=== PATIENT | female | born 1940 | race Caucasian/White ===

== ENCOUNTER 2017-04-12 22:36 | Inpatient (IN) | payer MEDICARE, MEDICAID ==
[2017-04-13 05:03] LABS: URINE MICROSCOPIC INDICATED? YES; URINE SOURCE MIDSTREAM
[2017-04-13 05:04] LABS: % BASOPHILS 1.2 % (0.0-2.0); % LYMPHOCYTES 33.4 % (20.0-50.0); % MONOCYTES 8.2 % (2.0-10.0); % NEUTROPHILS 56.2 % (40.0-80.0); BASOPHILE ABSOLUTE 0.1 Th/cumm (0-0.2); HEMATOCRIT 38.4 % (41.0-60); HEMOGLOBIN 12.6 gm/dL (12-16); LYMPHOCYTE ABSOLUTE 1.5 Th/cmm (1.5-3.0); MEAN CELL VOLUME 81.5 fl (81-100); MEAN CORPUSCULAR HEMOGLOBIN 26.7 pg (27.0-31.0); MEAN CORPUSCULAR HGB CONC 32.8 pg (28.0-36.0); MEAN PLATELET VOLUME 8.4 fl; MONOCYTE ABSOLUTE 0.4 Th/cmm (0.3-1.0); NEUTROPHILE ABSOLUTE 2.6 Th/cmm (1.8-8.0); RED BLOOD COUNT 4.72 Mil/cmm (3.80-5.20); RED CELL DISTRIBUTION WIDTH 14.2 % (11.5-20.0)
[2017-04-13 05:06] LABS: PLATELET COUNT 179 Th/cmm (150-400); WHITE BLOOD COUNT 4.6 Th/cmm (4.8-10.8)
[2017-04-13 05:16] LABS: URINE BILIRUBIN NEGATIVE (NEGATIVE); URINE BLOOD NEGATIVE (NEGATIVE); URINE GLUCOSE (UA) NEGATIVE (NEGATIVE); URINE KETONE NEGATIVE (NEGATIVE); URINE LEUKOCYTE ESTERASE NEGATIVE (NEGATIVE); URINE NITRATE NEGATIVE (NEGATIVE); URINE PH 7.5 (4.6 - 8.0); URINE PROTEIN NEGATIVE (NEGATIVE); URINE UROBILINOGEN 0.2 E.U./dL (0.2 - 1.0)
[2017-04-13 05:21] LABS: ALB/GLOB RATIO 1.3 (1.0-1.8); ALBUMIN 3.6 gm/dL (3.7-5.3); ALKALINE PHOSPHATASE 80 U/L (34-104); ANION GAP 6.4 (7.0-16.0); BILIRUBIN,TOTAL 0.5 mg/dL (0.3-1.0); BUN - UREA NITROGEN 15 mg/dL (7-25); CALCIUM SERUM 9.3 mg/dL (8.6-10.3); CARBON DIOXIDE 27.3 mEq/L (21.0-31.0); CHLORIDE 107 mEq/L (98-107); CREATININE - SERUM 0.7 mg/dL (0.6-1.2); GLUCOSE 95 mg/dL (70-105); POTASSIUM SERUM 3.7 mEq/L (3.5-5.1); SGOT 16 U/L (13-39); SGPT/ALT 20 U/L (7-52); SODIUM SERUM 137 mEq/L (136-145); TOTAL PROTEIN,SERUM 6.3 gm/dL (6.0-8.3)
[2017-04-13 05:26] LABS: URINE CLARITY CLEAR (CLEAR); URINE COLOR YELLOW
[2017-04-13 05:29] LABS: URINE EPITHELIAL CELLS FEW /lpf (FEW); URINE WBC 0-2 /hpf (0-5)
[2017-04-13 05:30] LABS: URINE BACTERIA FEW /hpf (NONE SEEN)
[2017-04-13 08:29] VITALS: BP 160/88
[2017-04-13] MEDS ORDERED: Magnesium Hydroxide (MOM) 30 mL UDC PO PRN (08:30)
[2017-04-13] MEDS ORDERED: Maalox 30 mL Cup PO PRN (08:30)
[2017-04-13] MEDS: Multivitamin Tab PO SCH (10:50)
--- NOTE | 2017-04-13 11:02 | Internal Medicine Prog Note ---
Internal Medicine Subjective - Subjective Service Date: 04/13/17 ([facility] dictated [id number]) Internal Medicine Objective - Results Result Diagrams: 04/13/17 04:55 04/13/17 04:55 Recent Labs: Laboratory Last Values WBC 4.6 Th/cmm (4.8-10.8) L D 04/13/17 04:55 RBC 4.72 Mil/cmm (3.80-5.20) 04/13/17 04:55 Hgb 12.6 gm/dL (12-16) 04/13/17 04:55 Hct 38.4 % (41.0-60) L 04/13/17 04:55 MCV 81.5 fl (81-100) 04/13/17 04:55 MCH 26.7 pg (27.0-31.0) L 04/13/17 04:55 MCHC Differential 32.8 pg (28.0-36.0) 04/13/17 04:55 RDW 14.2 % (11.5-20.0) 04/13/17 04:55 Plt Count 179 Th/cmm (150-400) D 04/13/17 04:55 MPV 8.4 fl 04/13/17 04:55 Neutrophils % 56.2 % (40.0-80.0) 04/13/17 04:55 Lymphocytes % 33.4 % (20.0-50.0) 04/13/17 04:55 Monocytes % 8.2 % (2.0-10.0) 04/13/17 04:55 Eosinophils % 1.0 % (0.0-5.0) 04/13/17 04:55 Basophils % 1.2 % (0.0-2.0) 04/13/17 04:55 Sodium 137 mEq/L (136-145) 04/13/17 04:55 Potassium 3.7 mEq/L (3.5-5.1) 04/13/17 04:55 Chloride 107 mEq/L (98-107) 04/13/17 04:55 Carbon Dioxide 27.3 mEq/L (21.0-31.0) 04/13/17 04:55 Anion Gap 6.4 (7.0-16.0) L 04/13/17 04:55 BUN 15 mg/dL (7-25) 04/13/17 04:55 Creatinine 0.7 mg/dL (0.6-1.2) 04/13/17 04:55 Est GFR ( Amer) TNP 04/13/17 04:55 Est GFR (Non-Af Amer) TNP 04/13/17 04:55 BUN/Creatinine Ratio 21.4 04/13/17 04:55 Glucose 95 mg/dL (70-105) 04/13/17 04:55 Calcium 9.3 mg/dL (8.6-10.3) 04/13/17 04:55 Total Bilirubin 0.5 mg/dL (0.3-1.0) 04/13/17 04:55 AST 16 U/L (13-39) 04/13/17 04:55 ALT 20 U/L (7-52) 04/13/17 04:55 Alkaline Phosphatase 80 U/L (34-104) 04/13/17 04:55 Total Protein 6.3 gm/dL (6.0-8.3) 04/13/17 04:55 Albumin 3.6 gm/dL (3.7-5.3) L 04/13/17 04:55 Globulin 2.7 gm/dL 04/13/17 04:55 Albumin/Globulin Ratio 1.3 (1.0-1.8) 04/13/17 04:55 TSH 3.90 uIU/ml (0.34-5.60) 04/13/17 04:55 Urine Source MIDSTREAM 04/13/17 05:00 Urine Color YELLOW 04/13/17 05:00 Urine Clarity CLEAR (CLEAR) 04/13/17 05:00 Urine pH 7.5 (4.6 - 8.0) 04/13/17 05:00 Ur Specific [place] 1.015 (1.005-1.030) 04/13/17 05:00 Urine Protein NEGATIVE mg/dL (NEGATIVE) 04/13/17 05:00 Urine Glucose (UA) NEGATIVE mg/dL (NEGATIVE) 04/13/17 05:00 Urine Ketones NEGATIVE mg/dL (NEGATIVE) 04/13/17 05:00 Urine Blood NEGATIVE (NEGATIVE) 04/13/17 05:00 Urine Nitrate NEGATIVE (NEGATIVE) 04/13/17 05:00 Urine Bilirubin NEGATIVE (NEGATIVE) 04/13/17 05:00 Urine Urobilinogen 0.2 E.U./dL (0.2 - 1.0) 04/13/17 05:00 Ur Leukocyte Esterase NEGATIVE (NEGATIVE) 04/13/17 05:00 Urine RBC 2-5 /hpf (0-5) 04/13/17 05:00 Urine WBC 0-2 /hpf (0-5) 04/13/17 05:00 Ur Epithelial Cells FEW /lpf (FEW) 04/13/17 05:00 Urine Bacteria FEW /hpf (NONE SEEN) 04/13/17 05:00 Urine Mucus FEW /lpf (FEW) 04/13/17 05:00 - Physical Exam Vitals and I&O: Vital Signs Temp 98.0 F 04/13/17 07:19 Pulse 78 04/13/17 07:19 Resp 16 04/13/17 07:19 BP 160/88 04/13/17 08:29 Pulse Ox 96 04/13/17 07:19 Active Medications: Current Medications Acetaminophen (Tylenol) 650 mg PO Q4HR PRN PRN Reason: Mild Pain / Temp above 100 Stop: 06/12/17 08:29 Al Hydrox/Mg Hydrox/Simethicone (Maalox) 30 ml PO Q4HR PRN PRN Reason: GI DISTRESS Stop: 06/12/17 08:29 Lorazepam (Ativan) 0.5 mg PO Q4HR PRN; Protocol PRN Reason: Agitation Stop: 05/13/17 08:29 Magnesium Hydroxide (Milk Of Magnesia) 30 ml PO HS PRN PRN Reason: Constipation Multivitamins/Vitamin C (Theragran) 1 tab PO DAILY [facility] Stop: 06/12/17 08:59 Last Admin: 04/13/17 10:50 Dose: Not Given Zolpidem Tartrate (Ambien) 5 mg PO HS PRN PRN Reason: Insomnia Stop: 06/12/17 08:29 Internal Medicine Assmt/Plan - Assessment Assessment: depression si htn dementia
--- NOTE | 2017-04-13 11:13 | History & Physical ---
ADMIT DATE: 04/13/2017 CHIEF COMPLAINT: Suicidal ideation and refusing medication. HISTORY OF PRESENT ILLNESS: This is a 76-year-old female, who is a resident of [facility], was brought here to [facility] due to depression and wanting to . The patient is now admitted to the Geropsych Unit. Upon examination, the patient is awake, alert, not really want to speak. PAST MEDICAL HISTORY: Depression, dementia, hypertension. PLAN: We will monitor the patient's blood pressure. We will adjust patient's blood pressure medications accordingly. We will continue to follow this patient. [facility]# [id number]
--- NOTE | 2017-04-14 02:01 | Psychosocial Evaluation ---
DATE OF SERVICE: 04/13/2017 IDENTIFYING DATA: The patient is a 76-year-old woman, resident of [facility]. Information obtained by directly interviewing the patient as well as reviewing the admission papers REASON FOR HOSPITALIZATION: The patient is admitted here on a 5150 as a danger to self. CHIEF COMPLAINT: "I want to end my life because no one cares about me." HISTORY OF PRESENT ILLNESS: This is one of multiple psychiatric hospitalizations for this patient, who is on a conservatorship. The patient has been diagnosed to have schizoaffective disorder and has been threatening to take her life. The patient is reporting that she does not care whether she is alive or . The patient has been reported to have been having these kind of problems and has been feeling helpless and hopeless and hence the patient has been admitted over here for stabilization. PAST PSYCHIATRIC HISTORY: Please refer to the above. MEDICAL HISTORY: Physical examination is requested to be done by Dr. Holt. SUBSTANCE ABUSE HISTORY: None. PHYSICAL OR SEXUAL ABUSE HISTORY: None. LEGAL PROBLEMS: None at this time. STRENGTH AND ASSETS: The patient is motivated. MENTAL STATUS EXAMINATION: The patient is a 76-year-old woman looking her stated age, superficially cooperative. Eye contact is poor. Mood is noted to be irritable. Affect is constricted. Coping skills are noted to be extremely poor. Sleep and appetite also noted to be very poor. The patient is very paranoid, isolative and withdrawn. The patient's short-term memory is noted to be poor. Long-term memory seems to be fair. The patient is not willing to comply with the treatment. The patient is stating that she does not need to be on any medications. DIAGNOSTIC IMPRESSION: 1. Schizoaffective disorder, depressed at this time. AXIS II: None. AXIS III: As per Dr. Stanley Holt. IMMEDIATE TREATMENT PLAN: The patient is going to be observed on inpatient unit, provided with supportive psychotherapy. The patient is going to be closely monitored. Once stabilized, the patient is going to be discharged to [facility] to be followed up on an outpatient basis. JOB# [id number]
[2017-04-14] MEDS: risperiDONE 1 mg/mL 30 mL Bottle PO SCH ×2 (08:12→16:27)
[2017-04-14] MEDS: Multivitamin Tab PO SCH ×2 (08:13)
--- NOTE | 2017-04-14 13:32 | Internal Medicine Prog Note ---
Internal Medicine Subjective - Subjective Service Date: 04/14/17 Patient seen and examined:: with staff Patient is:: awake, verbal, talking Per staff patient has:: tolerating meds Internal Medicine Objective - Results Result Diagrams: 04/13/17 04:55 04/13/17 04:55 Recent Labs: Laboratory Last Values WBC 4.6 Th/cmm (4.8-10.8) L D 04/13/17 04:55 RBC 4.72 Mil/cmm (3.80-5.20) 04/13/17 04:55 Hgb 12.6 gm/dL (12-16) 04/13/17 04:55 Hct 38.4 % (41.0-60) L 04/13/17 04:55 MCV 81.5 fl (81-100) 04/13/17 04:55 MCH 26.7 pg (27.0-31.0) L 04/13/17 04:55 MCHC Differential 32.8 pg (28.0-36.0) 04/13/17 04:55 RDW 14.2 % (11.5-20.0) 04/13/17 04:55 Plt Count 179 Th/cmm (150-400) D 04/13/17 04:55 MPV 8.4 fl 04/13/17 04:55 Neutrophils % 56.2 % (40.0-80.0) 04/13/17 04:55 Lymphocytes % 33.4 % (20.0-50.0) 04/13/17 04:55 Monocytes % 8.2 % (2.0-10.0) 04/13/17 04:55 Eosinophils % 1.0 % (0.0-5.0) 04/13/17 04:55 Basophils % 1.2 % (0.0-2.0) 04/13/17 04:55 Sodium 137 mEq/L (136-145) 04/13/17 04:55 Potassium 3.7 mEq/L (3.5-5.1) 04/13/17 04:55 Chloride 107 mEq/L (98-107) 04/13/17 04:55 Carbon Dioxide 27.3 mEq/L (21.0-31.0) 04/13/17 04:55 Anion Gap 6.4 (7.0-16.0) L 04/13/17 04:55 BUN 15 mg/dL (7-25) 04/13/17 04:55 Creatinine 0.7 mg/dL (0.6-1.2) 04/13/17 04:55 Est GFR ( Amer) TNP 04/13/17 04:55 Est GFR (Non-Af Amer) TNP 04/13/17 04:55 BUN/Creatinine Ratio 21.4 04/13/17 04:55 Glucose 95 mg/dL (70-105) 04/13/17 04:55 Calcium 9.3 mg/dL (8.6-10.3) 04/13/17 04:55 Total Bilirubin 0.5 mg/dL (0.3-1.0) 04/13/17 04:55 AST 16 U/L (13-39) 04/13/17 04:55 ALT 20 U/L (7-52) 04/13/17 04:55 Alkaline Phosphatase 80 U/L (34-104) 04/13/17 04:55 Total Protein 6.3 gm/dL (6.0-8.3) 04/13/17 04:55 Albumin 3.6 gm/dL (3.7-5.3) L 04/13/17 04:55 Globulin 2.7 gm/dL 04/13/17 04:55 Albumin/Globulin Ratio 1.3 (1.0-1.8) 04/13/17 04:55 TSH 3.90 uIU/ml (0.34-5.60) 04/13/17 04:55 Urine Source MIDSTREAM 04/13/17 05:00 Urine Color YELLOW 04/13/17 05:00 Urine Clarity CLEAR (CLEAR) 04/13/17 05:00 Urine pH 7.5 (4.6 - 8.0) 04/13/17 05:00 Ur Specific [place] 1.015 (1.005-1.030) 04/13/17 05:00 Urine Protein NEGATIVE mg/dL (NEGATIVE) 04/13/17 05:00 Urine Glucose (UA) NEGATIVE mg/dL (NEGATIVE) 04/13/17 05:00 Urine Ketones NEGATIVE mg/dL (NEGATIVE) 04/13/17 05:00 Urine Blood NEGATIVE (NEGATIVE) 04/13/17 05:00 Urine Nitrate NEGATIVE (NEGATIVE) 04/13/17 05:00 Urine Bilirubin NEGATIVE (NEGATIVE) 04/13/17 05:00 Urine Urobilinogen 0.2 E.U./dL (0.2 - 1.0) 04/13/17 05:00 Ur Leukocyte Esterase NEGATIVE (NEGATIVE) 04/13/17 05:00 Urine RBC 2-5 /hpf (0-5) 04/13/17 05:00 Urine WBC 0-2 /hpf (0-5) 04/13/17 05:00 Ur Epithelial Cells FEW /lpf (FEW) 04/13/17 05:00 Urine Bacteria FEW /hpf (NONE SEEN) 04/13/17 05:00 Urine Mucus FEW /lpf (FEW) 04/13/17 05:00 - Physical Exam Vitals and I&O: Vital Signs Temp 97.4 F 04/14/17 06:43 Pulse 90 04/14/17 08:12 Resp 20 04/14/17 08:00 BP 143/89 04/14/17 08:12 Pulse Ox 97 04/14/17 06:43 Intake & Output 04/13/17 04/14/17 04/14/17 18:59 06:59 18:59 Intake Total 1200 120 Balance 1200 120 Intake: Oral 1200 120 Other: # Voids 3 # Bowel Movements 1 Active Medications: Current Medications Acetaminophen (Tylenol) 650 mg PO Q4HR PRN PRN Reason: Mild Pain / Temp above 100 Stop: 06/12/17 08:29 Acetaminophen (Tylenol) 325 mg PO Q6HR PRN PRN Reason: Pain or Fever >101 Stop: 06/12/17 10:59 Al Hydrox/Mg Hydrox/Simethicone (Maalox) 30 ml PO Q4HR PRN PRN Reason: GI DISTRESS Stop: 06/12/17 08:29 Escitalopram Oxalate (Lexapro) 10 mg PO DAILY [facility]INE PRN Reason: Protocol Stop: 06/13/17 08:59 Last Admin: 04/14/17 08:12 Dose: Not Given Lorazepam (Ativan) 0.5 mg PO Q4HR PRN; Protocol PRN Reason: Agitation Stop: 05/13/17 08:29 Magnesium Hydroxide (Milk Of Magnesia) 30 ml PO HS PRN PRN Reason: Constipation Memantine (Namenda) 10 mg PO BID [facility] Stop: 06/12/17 16:59 Last Admin: 04/14/17 08:12 Dose: Not Given Metoprolol Succinate (Toprol Xl) 50 mg PO DAILY [facility] Stop: 06/13/17 08:59 Last Admin: 04/14/17 08:12 Dose: Not Given Mirtazapine (Remeron) 7.5 mg PO HS AUGUSTINE PRN Reason: Protocol Stop: 06/12/17 20:59 Last Admin: 04/14/17 06:09 Dose: 7.5 mg Multivitamins/Vitamin C (Theragran) 1 tab PO DAILY [facility] Stop: 06/12/17 08:59 Last Admin: 04/14/17 08:13 Dose: Not Given Multivitamins/Vitamin C (Theragran) 1 tab PO DAILY [facility] Stop: 06/13/17 08:59 Last Admin: 04/14/17 08:13 Dose: Not Given Risperidone (Risperdal) 1 mg PO BID [facility]INE PRN Reason: Protocol Stop: 06/12/17 16:59 Last Admin: 04/14/17 08:12 Dose: Not Given Zolpidem Tartrate (Ambien) 5 mg PO HS PRN PRN Reason: Insomnia Stop: 06/12/17 08:29 General: alert HEENT: NC/AT, PERRLA Neck: Supple Lungs: CTAB Cardiovascular: RRR, Normal S1, Normal S2, without murmur Abdomen: soft, non-tender, non-distended, positive bowel sound Extremities: excoriation Neurological: alert Internal Medicine Assmt/Plan - Assessment Assessment: depression si htn dementia - Plan Plan: SAFETY PRECAUTIONS MONITOR BP CONTINUE CURRENT PLAN OF CARE
--- NOTE | 2017-04-14 23:59 | Progress Notes ---
DATE: 04/14/2017 SUBJECTIVE: The Staff was spoken to. The patient is interviewed. Mood is noted to be irritable. Affect is constricted. Insight and judgment at this time are noted to be very much impaired. Impulse control is noted to be poor. The patient is stating that she should not be on any medications and she is in here for no reason. The patient ids stating that she has been trying her best to get into the groups. The patient is currently on Lexapro, mirtazapine and Risperdal. The patient has been able to tolerate the medication. ASSESSMENT: The patient is still psychotic and impulsive. PLAN: To continue the patient with the supportive therapy and encouraged the patient to verbalize the concerns rather than to act out. JOB# [id number]
[2017-04-15] MEDS: risperiDONE 1 mg/mL 30 mL Bottle PO SCH ×2 (08:09→16:07)
[2017-04-15] MEDS: Multivitamin Tab PO SCH ×2 (08:11)
--- NOTE | 2017-04-15 12:55 | Internal Medicine Prog Note ---
Internal Medicine Subjective - Subjective Service Date: 04/15/17 Patient is:: awake, verbal, talking Per staff patient has:: tolerating meds Internal Medicine Objective - Results Result Diagrams: 04/13/17 04:55 04/13/17 04:55 Recent Labs: Laboratory Last Values WBC 4.6 Th/cmm (4.8-10.8) L D 04/13/17 04:55 RBC 4.72 Mil/cmm (3.80-5.20) 04/13/17 04:55 Hgb 12.6 gm/dL (12-16) 04/13/17 04:55 Hct 38.4 % (41.0-60) L 04/13/17 04:55 MCV 81.5 fl (81-100) 04/13/17 04:55 MCH 26.7 pg (27.0-31.0) L 04/13/17 04:55 MCHC Differential 32.8 pg (28.0-36.0) 04/13/17 04:55 RDW 14.2 % (11.5-20.0) 04/13/17 04:55 Plt Count 179 Th/cmm (150-400) D 04/13/17 04:55 MPV 8.4 fl 04/13/17 04:55 Neutrophils % 56.2 % (40.0-80.0) 04/13/17 04:55 Lymphocytes % 33.4 % (20.0-50.0) 04/13/17 04:55 Monocytes % 8.2 % (2.0-10.0) 04/13/17 04:55 Eosinophils % 1.0 % (0.0-5.0) 04/13/17 04:55 Basophils % 1.2 % (0.0-2.0) 04/13/17 04:55 Sodium 137 mEq/L (136-145) 04/13/17 04:55 Potassium 3.7 mEq/L (3.5-5.1) 04/13/17 04:55 Chloride 107 mEq/L (98-107) 04/13/17 04:55 Carbon Dioxide 27.3 mEq/L (21.0-31.0) 04/13/17 04:55 Anion Gap 6.4 (7.0-16.0) L 04/13/17 04:55 BUN 15 mg/dL (7-25) 04/13/17 04:55 Creatinine 0.7 mg/dL (0.6-1.2) 04/13/17 04:55 Est GFR ( Amer) TNP 04/13/17 04:55 Est GFR (Non-Af Amer) TNP 04/13/17 04:55 BUN/Creatinine Ratio 21.4 04/13/17 04:55 Glucose 95 mg/dL (70-105) 04/13/17 04:55 Calcium 9.3 mg/dL (8.6-10.3) 04/13/17 04:55 Total Bilirubin 0.5 mg/dL (0.3-1.0) 04/13/17 04:55 AST 16 U/L (13-39) 04/13/17 04:55 ALT 20 U/L (7-52) 04/13/17 04:55 Alkaline Phosphatase 80 U/L (34-104) 04/13/17 04:55 Total Protein 6.3 gm/dL (6.0-8.3) 04/13/17 04:55 Albumin 3.6 gm/dL (3.7-5.3) L 04/13/17 04:55 Globulin 2.7 gm/dL 04/13/17 04:55 Albumin/Globulin Ratio 1.3 (1.0-1.8) 04/13/17 04:55 TSH 3.90 uIU/ml (0.34-5.60) 04/13/17 04:55 Urine Source MIDSTREAM 04/13/17 05:00 Urine Color YELLOW 04/13/17 05:00 Urine Clarity CLEAR (CLEAR) 04/13/17 05:00 Urine pH 7.5 (4.6 - 8.0) 04/13/17 05:00 Ur Specific [place] 1.015 (1.005-1.030) 04/13/17 05:00 Urine Protein NEGATIVE mg/dL (NEGATIVE) 04/13/17 05:00 Urine Glucose (UA) NEGATIVE mg/dL (NEGATIVE) 04/13/17 05:00 Urine Ketones NEGATIVE mg/dL (NEGATIVE) 04/13/17 05:00 Urine Blood NEGATIVE (NEGATIVE) 04/13/17 05:00 Urine Nitrate NEGATIVE (NEGATIVE) 04/13/17 05:00 Urine Bilirubin NEGATIVE (NEGATIVE) 04/13/17 05:00 Urine Urobilinogen 0.2 E.U./dL (0.2 - 1.0) 04/13/17 05:00 Ur Leukocyte Esterase NEGATIVE (NEGATIVE) 04/13/17 05:00 Urine RBC 2-5 /hpf (0-5) 04/13/17 05:00 Urine WBC 0-2 /hpf (0-5) 04/13/17 05:00 Ur Epithelial Cells FEW /lpf (FEW) 04/13/17 05:00 Urine Bacteria FEW /hpf (NONE SEEN) 04/13/17 05:00 Urine Mucus FEW /lpf (FEW) 04/13/17 05:00 - Physical Exam Vitals and I&O: Vital Signs Temp 97.9 F 04/15/17 06:43 Pulse 88 04/15/17 08:10 Resp 19 04/15/17 06:43 BP 128/80 04/15/17 08:10 Pulse Ox 97 04/15/17 06:43 Intake & Output 04/14/17 04/15/17 04/15/17 18:59 06:59 18:59 Intake Total 2200 120 Balance 2200 120 Intake: Oral 2200 120 Other: # Voids 3 3 # Bowel Movements 1 Active Medications: Current Medications Acetaminophen (Tylenol) 650 mg PO Q4HR PRN PRN Reason: Mild Pain / Temp above 100 Stop: 06/12/17 08:29 Acetaminophen (Tylenol) 325 mg PO Q6HR PRN PRN Reason: Pain or Fever >101 Stop: 06/12/17 10:59 Al Hydrox/Mg Hydrox/Simethicone (Maalox) 30 ml PO Q4HR PRN PRN Reason: GI DISTRESS Stop: 06/12/17 08:29 Escitalopram Oxalate (Lexapro) 10 mg PO DAILY AUG[facility]INE PRN Reason: Protocol Stop: 06/13/17 08:59 Last Admin: 04/15/17 08:09 Dose: Not Given Lorazepam (Ativan) 0.5 mg PO Q4HR PRN; Protocol PRN Reason: Agitation Stop: 05/13/17 08:29 Magnesium Hydroxide (Milk Of Magnesia) 30 ml PO HS PRN PRN Reason: Constipation Memantine (Namenda) 10 mg PO BID [facility] Stop: 06/12/17 16:59 Last Admin: 04/15/17 08:09 Dose: Not Given Metoprolol Succinate (Toprol Xl) 50 mg PO DAILY [facility] Stop: 06/13/17 08:59 Last Admin: 04/15/17 08:10 Dose: Not Given Multivitamins/Vitamin C (Theragran) 1 tab PO DAILY [facility] Stop: 06/12/17 08:59 Last Admin: 04/15/17 08:11 Dose: Not Given Multivitamins/Vitamin C (Theragran) 1 tab PO DAILY [facility] Stop: 06/13/17 08:59 Last Admin: 04/15/17 08:11 Dose: Not Given Risperidone (Risperdal) 1 mg PO BID [facility] PRN Reason: Protocol Stop: 06/12/17 16:59 Last Admin: 04/15/17 08:09 Dose: Not Given Zolpidem Tartrate (Ambien) 5 mg PO HS PRN PRN Reason: Insomnia Stop: 06/12/17 08:29 General: alert HEENT: NC/AT, PERRLA Neck: Supple Lungs: CTAB Cardiovascular: RRR, Normal S1, Normal S2, without murmur Abdomen: soft, non-tender, non-distended, positive bowel sound Extremities: excoriation Neurological: alert Internal Medicine Assmt/Plan - Assessment Assessment: depression si htn dementia - Plan Plan: SAFETY PRECAUTIONS MONITOR BP CONTINUE CURRENT PLAN OF CARE
--- NOTE | 2017-04-15 22:32 | Progress Notes ---
DATE: 04/15/2017 Staff was spoken to. The patient is interviewed. Mood is noted to be irritable. Affect is constricted. The patient is isolated and withdrawn. Coping skills are noted to be very poor. Continues to be very paranoid. The patient is also presenting with depression. The patient's coping skills at this time are noted to be very poor. The patient is reporting that she is too sleepy and could not figure it out what has been making her to be too sleepy and she is currently on mirtazapine 7.5 mg at bedtime. The patient is also on the Lexapro and hence, it is decided to discontinue the mirtazapine and continue the Lexapro and Risperdal and follow the patient up with supportive therapy. JOB# [id number]
[2017-04-16] MEDS: Multivitamin Tab PO SCH ×3 (08:50→08:56)
[2017-04-16] MEDS: risperiDONE 1 mg/mL 30 mL Bottle PO SCH ×2 (08:54→16:29)
--- NOTE | 2017-04-16 17:39 | Internal Medicine Prog Note ---
Internal Medicine Subjective - Subjective Patient seen and examined:: with staff, chart reviewed Patient is:: awake, verbal, talking Per staff patient has:: no adverse event, no episodes of fall, tolerating meds Internal Medicine Objective - Results Result Diagrams: 04/13/17 04:55 04/13/17 04:55 Recent Labs: Laboratory Last Values WBC 4.6 Th/cmm (4.8-10.8) L D 04/13/17 04:55 RBC 4.72 Mil/cmm (3.80-5.20) 04/13/17 04:55 Hgb 12.6 gm/dL (12-16) 04/13/17 04:55 Hct 38.4 % (41.0-60) L 04/13/17 04:55 MCV 81.5 fl (81-100) 04/13/17 04:55 MCH 26.7 pg (27.0-31.0) L 04/13/17 04:55 MCHC Differential 32.8 pg (28.0-36.0) 04/13/17 04:55 RDW 14.2 % (11.5-20.0) 04/13/17 04:55 Plt Count 179 Th/cmm (150-400) D 04/13/17 04:55 MPV 8.4 fl 04/13/17 04:55 Neutrophils % 56.2 % (40.0-80.0) 04/13/17 04:55 Lymphocytes % 33.4 % (20.0-50.0) 04/13/17 04:55 Monocytes % 8.2 % (2.0-10.0) 04/13/17 04:55 Eosinophils % 1.0 % (0.0-5.0) 04/13/17 04:55 Basophils % 1.2 % (0.0-2.0) 04/13/17 04:55 Sodium 137 mEq/L (136-145) 04/13/17 04:55 Potassium 3.7 mEq/L (3.5-5.1) 04/13/17 04:55 Chloride 107 mEq/L (98-107) 04/13/17 04:55 Carbon Dioxide 27.3 mEq/L (21.0-31.0) 04/13/17 04:55 Anion Gap 6.4 (7.0-16.0) L 04/13/17 04:55 BUN 15 mg/dL (7-25) 04/13/17 04:55 Creatinine 0.7 mg/dL (0.6-1.2) 04/13/17 04:55 Est GFR ( Amer) TNP 04/13/17 04:55 Est GFR (Non-Af Amer) TNP 04/13/17 04:55 BUN/Creatinine Ratio 21.4 04/13/17 04:55 Glucose 95 mg/dL (70-105) 04/13/17 04:55 Calcium 9.3 mg/dL (8.6-10.3) 04/13/17 04:55 Total Bilirubin 0.5 mg/dL (0.3-1.0) 04/13/17 04:55 AST 16 U/L (13-39) 04/13/17 04:55 ALT 20 U/L (7-52) 04/13/17 04:55 Alkaline Phosphatase 80 U/L (34-104) 04/13/17 04:55 Total Protein 6.3 gm/dL (6.0-8.3) 04/13/17 04:55 Albumin 3.6 gm/dL (3.7-5.3) L 04/13/17 04:55 Globulin 2.7 gm/dL 04/13/17 04:55 Albumin/Globulin Ratio 1.3 (1.0-1.8) 04/13/17 04:55 TSH 3.90 uIU/ml (0.34-5.60) 04/13/17 04:55 Urine Source MIDSTREAM 04/13/17 05:00 Urine Color YELLOW 04/13/17 05:00 Urine Clarity CLEAR (CLEAR) 04/13/17 05:00 Urine pH 7.5 (4.6 - 8.0) 04/13/17 05:00 Ur Specific [place] 1.015 (1.005-1.030) 04/13/17 05:00 Urine Protein NEGATIVE mg/dL (NEGATIVE) 04/13/17 05:00 Urine Glucose (UA) NEGATIVE mg/dL (NEGATIVE) 04/13/17 05:00 Urine Ketones NEGATIVE mg/dL (NEGATIVE) 04/13/17 05:00 Urine Blood NEGATIVE (NEGATIVE) 04/13/17 05:00 Urine Nitrate NEGATIVE (NEGATIVE) 04/13/17 05:00 Urine Bilirubin NEGATIVE (NEGATIVE) 04/13/17 05:00 Urine Urobilinogen 0.2 E.U./dL (0.2 - 1.0) 04/13/17 05:00 Ur Leukocyte Esterase NEGATIVE (NEGATIVE) 04/13/17 05:00 Urine RBC 2-5 /hpf (0-5) 04/13/17 05:00 Urine WBC 0-2 /hpf (0-5) 04/13/17 05:00 Ur Epithelial Cells FEW /lpf (FEW) 04/13/17 05:00 Urine Bacteria FEW /hpf (NONE SEEN) 04/13/17 05:00 Urine Mucus FEW /lpf (FEW) 04/13/17 05:00 - Physical Exam Vitals and I&O: Vital Signs Temp 98.4 F 04/16/17 14:51 Pulse 98 04/16/17 14:51 Resp 20 04/16/17 14:51 BP 135/76 04/16/17 14:51 Pulse Ox 99 04/16/17 14:51 Intake & Output 04/15/17 04/16/17 04/16/17 18:59 06:59 18:59 Intake Total 1000 120 Balance 1000 120 Intake: Oral 1000 120 Other: # Voids 4 3 # Bowel Movements 1 Active Medications: Current Medications Acetaminophen (Tylenol) 650 mg PO Q4HR PRN PRN Reason: Mild Pain / Temp above 100 Stop: 06/12/17 08:29 Acetaminophen (Tylenol) 325 mg PO Q6HR PRN PRN Reason: Pain or Fever >101 Stop: 06/12/17 10:59 Al Hydrox/Mg Hydrox/Simethicone (Maalox) 30 ml PO Q4HR PRN PRN Reason: GI DISTRESS Stop: 06/12/17 08:29 Escitalopram Oxalate (Lexapro) 10 mg PO DAILY [facility] PRN Reason: Protocol Stop: 06/13/17 08:59 Last Admin: 04/16/17 08:55 Dose: Not Given Lorazepam (Ativan) 0.5 mg PO Q4HR PRN; Protocol PRN Reason: Agitation Stop: 05/13/17 08:29 Magnesium Hydroxide (Milk Of Magnesia) 30 ml PO HS PRN PRN Reason: Constipation Memantine (Namenda) 10 mg PO BID [facility] Stop: 06/12/17 16:59 Last Admin: 04/16/17 16:30 Dose: 10 mg Metoprolol Succinate (Toprol Xl) 50 mg PO DAILY [facility] Stop: 06/13/17 08:59 Last Admin: 04/16/17 08:56 Dose: Not Given Multivitamins/Vitamin C (Theragran) 1 tab PO DAILY [facility] Stop: 06/12/17 08:59 Last Admin: 04/16/17 08:55 Dose: Not Given Multivitamins/Vitamin C (Theragran) 1 tab PO DAILY [facility] Stop: 06/13/17 08:59 Last Admin: 04/16/17 08:56 Dose: Not Given Risperidone (Risperdal) 1 mg PO BID [facility] PRN Reason: Protocol Stop: 06/12/17 16:59 Last Admin: 04/16/17 16:29 Dose: 1 mg Zolpidem Tartrate (Ambien) 5 mg PO HS PRN PRN Reason: Insomnia Stop: 06/12/17 08:29 General: alert HEENT: NC/AT, PERRLA Neck: Supple Lungs: CTAB Cardiovascular: RRR, Normal S1, Normal S2, without murmur Abdomen: soft, non-tender, non-distended, positive bowel sound Extremities: excoriation Neurological: alert Internal Medicine Assmt/Plan - Assessment Assessment: - Assessment Assessment: depression si htn dementia - Plan Plan: SAFETY PRECAUTIONS MONITOR BP CONTINUE CURRENT PLAN OF CARE - Plan Plan: fall precaution see orders
--- NOTE | 2017-04-16 19:25 | Progress Notes ---
DATE: 04/16/2017 PSYCHIATRIC PROGRESS NOTE SUBJECTIVE: Staff was spoken to. The patient is interviewed. Mood is noted to be irritable. Affect is constricted. Insight and judgment at this time are noted to be still impaired. Impulse control is very poor. The patient is isolative and withdrawn, continues to be very paranoid and is stating that there is no reason for her to be on the medications and is refusing to comply with the treatment. No side effects to the medications are noted. ASSESSMENT: The patient is still psychotic. PLAN: To continue the patient with the supportive therapy, encouraged the patient to verbalize the concerns rather than to act out. JOB# [id number]
[2017-04-17] MEDS: risperiDONE 1 mg/mL 30 mL Bottle PO SCH ×2 (08:28→08:35)
[2017-04-17] MEDS: Multivitamin Tab PO SCH ×3 (08:30→16:34)
--- NOTE | 2017-04-17 13:13 | Internal Medicine Prog Note ---
Internal Medicine Subjective - Subjective Patient seen and examined:: with staff, chart reviewed Patient is:: awake, verbal, talking Per staff patient has:: no adverse event, no episodes of fall, tolerating meds Internal Medicine Objective - Results Result Diagrams: 04/13/17 04:55 04/13/17 04:55 Recent Labs: Laboratory Last Values WBC 4.6 Th/cmm (4.8-10.8) L D 04/13/17 04:55 RBC 4.72 Mil/cmm (3.80-5.20) 04/13/17 04:55 Hgb 12.6 gm/dL (12-16) 04/13/17 04:55 Hct 38.4 % (41.0-60) L 04/13/17 04:55 MCV 81.5 fl (81-100) 04/13/17 04:55 MCH 26.7 pg (27.0-31.0) L 04/13/17 04:55 MCHC Differential 32.8 pg (28.0-36.0) 04/13/17 04:55 RDW 14.2 % (11.5-20.0) 04/13/17 04:55 Plt Count 179 Th/cmm (150-400) D 04/13/17 04:55 MPV 8.4 fl 04/13/17 04:55 Neutrophils % 56.2 % (40.0-80.0) 04/13/17 04:55 Lymphocytes % 33.4 % (20.0-50.0) 04/13/17 04:55 Monocytes % 8.2 % (2.0-10.0) 04/13/17 04:55 Eosinophils % 1.0 % (0.0-5.0) 04/13/17 04:55 Basophils % 1.2 % (0.0-2.0) 04/13/17 04:55 Sodium 137 mEq/L (136-145) 04/13/17 04:55 Potassium 3.7 mEq/L (3.5-5.1) 04/13/17 04:55 Chloride 107 mEq/L (98-107) 04/13/17 04:55 Carbon Dioxide 27.3 mEq/L (21.0-31.0) 04/13/17 04:55 Anion Gap 6.4 (7.0-16.0) L 04/13/17 04:55 BUN 15 mg/dL (7-25) 04/13/17 04:55 Creatinine 0.7 mg/dL (0.6-1.2) 04/13/17 04:55 Est GFR ( Amer) TNP 04/13/17 04:55 Est GFR (Non-Af Amer) TNP 04/13/17 04:55 BUN/Creatinine Ratio 21.4 04/13/17 04:55 Glucose 95 mg/dL (70-105) 04/13/17 04:55 Calcium 9.3 mg/dL (8.6-10.3) 04/13/17 04:55 Total Bilirubin 0.5 mg/dL (0.3-1.0) 04/13/17 04:55 AST 16 U/L (13-39) 04/13/17 04:55 ALT 20 U/L (7-52) 04/13/17 04:55 Alkaline Phosphatase 80 U/L (34-104) 04/13/17 04:55 Total Protein 6.3 gm/dL (6.0-8.3) 04/13/17 04:55 Albumin 3.6 gm/dL (3.7-5.3) L 04/13/17 04:55 Globulin 2.7 gm/dL 04/13/17 04:55 Albumin/Globulin Ratio 1.3 (1.0-1.8) 04/13/17 04:55 TSH 3.90 uIU/ml (0.34-5.60) 04/13/17 04:55 Urine Source MIDSTREAM 04/13/17 05:00 Urine Color YELLOW 04/13/17 05:00 Urine Clarity CLEAR (CLEAR) 04/13/17 05:00 Urine pH 7.5 (4.6 - 8.0) 04/13/17 05:00 Ur Specific [place] 1.015 (1.005-1.030) 04/13/17 05:00 Urine Protein NEGATIVE mg/dL (NEGATIVE) 04/13/17 05:00 Urine Glucose (UA) NEGATIVE mg/dL (NEGATIVE) 04/13/17 05:00 Urine Ketones NEGATIVE mg/dL (NEGATIVE) 04/13/17 05:00 Urine Blood NEGATIVE (NEGATIVE) 04/13/17 05:00 Urine Nitrate NEGATIVE (NEGATIVE) 04/13/17 05:00 Urine Bilirubin NEGATIVE (NEGATIVE) 04/13/17 05:00 Urine Urobilinogen 0.2 E.U./dL (0.2 - 1.0) 04/13/17 05:00 Ur Leukocyte Esterase NEGATIVE (NEGATIVE) 04/13/17 05:00 Urine RBC 2-5 /hpf (0-5) 04/13/17 05:00 Urine WBC 0-2 /hpf (0-5) 04/13/17 05:00 Ur Epithelial Cells FEW /lpf (FEW) 04/13/17 05:00 Urine Bacteria FEW /hpf (NONE SEEN) 04/13/17 05:00 Urine Mucus FEW /lpf (FEW) 04/13/17 05:00 - Physical Exam Vitals and I&O: Vital Signs Temp 99.7 F 04/17/17 05:47 Pulse 69 04/17/17 05:47 Resp 20 04/17/17 05:47 BP 122/68 04/17/17 05:47 Pulse Ox 97 04/17/17 05:47 Intake & Output 04/16/17 04/17/17 04/17/17 18:59 06:59 18:59 Intake Total 1200 360 Balance 1200 360 Intake: Oral 1200 360 Other: # Voids 3 1 Active Medications: Current Medications Acetaminophen (Tylenol) 650 mg PO Q4HR PRN PRN Reason: Mild Pain / Temp above 100 Stop: 06/12/17 08:29 Acetaminophen (Tylenol) 325 mg PO Q6HR PRN PRN Reason: Pain or Fever >101 Stop: 06/12/17 10:59 Al Hydrox/Mg Hydrox/Simethicone (Maalox) 30 ml PO Q4HR PRN PRN Reason: GI DISTRESS Stop: 06/12/17 08:29 Escitalopram Oxalate (Lexapro) 10 mg PO DAILY [facility] PRN Reason: Protocol Stop: 06/13/17 08:59 Last Admin: 04/16/17 08:55 Dose: Not Given Haloperidol (Haldol) 1 mg PO BID [facility] PRN Reason: Protocol Stop: 06/16/17 16:59 Lorazepam (Ativan) 0.5 mg PO Q4HR PRN; Protocol PRN Reason: Agitation Stop: 05/13/17 08:29 Magnesium Hydroxide (Milk Of Magnesia) 30 ml PO HS PRN PRN Reason: Constipation Memantine (Namenda) 10 mg PO BID [facility] Stop: 06/12/17 16:59 Last Admin: 04/16/17 16:30 Dose: 10 mg Metoprolol Succinate (Toprol Xl) 50 mg PO DAILY [facility] Stop: 06/13/17 08:59 Last Admin: 04/16/17 08:56 Dose: Not Given Multivitamins/Vitamin C (Theragran) 1 tab PO DAILY [facility] Stop: 06/12/17 08:59 Last Admin: 04/16/17 08:55 Dose: Not Given Multivitamins/Vitamin C (Theragran) 1 tab PO DAILY [facility] Stop: 06/13/17 08:59 Last Admin: 04/17/17 08:31 Dose: Not Given Zolpidem Tartrate (Ambien) 5 mg PO HS PRN PRN Reason: Insomnia Stop: 06/12/17 08:29 General: alert HEENT: NC/AT, PERRLA Neck: Supple Lungs: CTAB Cardiovascular: RRR, Normal S1, Normal S2, without murmur Abdomen: soft, non-tender, non-distended, positive bowel sound Extremities: excoriation Neurological: alert Internal Medicine Assmt/Plan - Assessment Assessment: - Assessment Assessment: depression si htn dementia - Plan Plan: SAFETY PRECAUTIONS MONITOR BP CONTINUE CURRENT PLAN OF CARE - Plan Plan: fall precaution see orders
--- NOTE | 2017-04-17 21:51 | Progress Notes ---
DATE: 04/17/2017 SUBJECTIVE: Staff was spoken to. The patient is interviewed. Mood is noted to be irritable. Affect is constricted. The patient is reporting that she is not going to be taking any medications. The patient's insight and judgment at this time are noted to be still impaired. Impulse control seems to be limited. The patient has no coping skills. The patient continues to be isolative and withdrawn and has been still having difficult time to cope with the stress. The patient is stating that she is okay, but the patient has been reluctant to participate in any of the groups. The patient's coping skills noted to be extremely poor at this time. ASSESSMENT: The patient is still grossly psychotic. PLAN: To encouraged the patient to verbalize the concerns rather than to act out. The patient is going to be started on the Haldol 1 mg twice a day and with a hope that the patient is going to be complying with this one if not, the patient is going to be given the IM and then the Risperdal is going to be discontinued. At this time, the patient is reluctant to take the medication and hence we have decided to discontinue the Risperdal and then we are going to be placing the patient on Haldol and the patient is going to be closely monitored. The patient has both short-term as well as long-term memory deficits and the patient is very irritable at this time and is not ready to be discharged to a lower level of care yet. [facility]# [phone] [id number]
[2017-04-18] MEDS: Multivitamin Tab PO SCH ×2 (11:26)
--- NOTE | 2017-04-18 11:54 | Internal Medicine Prog Note ---
Internal Medicine Subjective - Subjective Service Date: 04/18/17 Patient is:: awake, verbal, talking Per staff patient has:: no adverse event, no episodes of fall, tolerating meds Internal Medicine Objective - Results Result Diagrams: 04/13/17 04:55 04/13/17 04:55 Recent Labs: Laboratory Last Values WBC 4.6 Th/cmm (4.8-10.8) L D 04/13/17 04:55 RBC 4.72 Mil/cmm (3.80-5.20) 04/13/17 04:55 Hgb 12.6 gm/dL (12-16) 04/13/17 04:55 Hct 38.4 % (41.0-60) L 04/13/17 04:55 MCV 81.5 fl (81-100) 04/13/17 04:55 MCH 26.7 pg (27.0-31.0) L 04/13/17 04:55 MCHC Differential 32.8 pg (28.0-36.0) 04/13/17 04:55 RDW 14.2 % (11.5-20.0) 04/13/17 04:55 Plt Count 179 Th/cmm (150-400) D 04/13/17 04:55 MPV 8.4 fl 04/13/17 04:55 Neutrophils % 56.2 % (40.0-80.0) 04/13/17 04:55 Lymphocytes % 33.4 % (20.0-50.0) 04/13/17 04:55 Monocytes % 8.2 % (2.0-10.0) 04/13/17 04:55 Eosinophils % 1.0 % (0.0-5.0) 04/13/17 04:55 Basophils % 1.2 % (0.0-2.0) 04/13/17 04:55 Sodium 137 mEq/L (136-145) 04/13/17 04:55 Potassium 3.7 mEq/L (3.5-5.1) 04/13/17 04:55 Chloride 107 mEq/L (98-107) 04/13/17 04:55 Carbon Dioxide 27.3 mEq/L (21.0-31.0) 04/13/17 04:55 Anion Gap 6.4 (7.0-16.0) L 04/13/17 04:55 BUN 15 mg/dL (7-25) 04/13/17 04:55 Creatinine 0.7 mg/dL (0.6-1.2) 04/13/17 04:55 Est GFR ( Amer) TNP 04/13/17 04:55 Est GFR (Non-Af Amer) TNP 04/13/17 04:55 BUN/Creatinine Ratio 21.4 04/13/17 04:55 Glucose 95 mg/dL (70-105) 04/13/17 04:55 Calcium 9.3 mg/dL (8.6-10.3) 04/13/17 04:55 Total Bilirubin 0.5 mg/dL (0.3-1.0) 04/13/17 04:55 AST 16 U/L (13-39) 04/13/17 04:55 ALT 20 U/L (7-52) 04/13/17 04:55 Alkaline Phosphatase 80 U/L (34-104) 04/13/17 04:55 Total Protein 6.3 gm/dL (6.0-8.3) 04/13/17 04:55 Albumin 3.6 gm/dL (3.7-5.3) L 04/13/17 04:55 Globulin 2.7 gm/dL 04/13/17 04:55 Albumin/Globulin Ratio 1.3 (1.0-1.8) 04/13/17 04:55 TSH 3.90 uIU/ml (0.34-5.60) 04/13/17 04:55 Urine Source MIDSTREAM 04/13/17 05:00 Urine Color YELLOW 04/13/17 05:00 Urine Clarity CLEAR (CLEAR) 04/13/17 05:00 Urine pH 7.5 (4.6 - 8.0) 04/13/17 05:00 Ur Specific [place] 1.015 (1.005-1.030) 04/13/17 05:00 Urine Protein NEGATIVE mg/dL (NEGATIVE) 04/13/17 05:00 Urine Glucose (UA) NEGATIVE mg/dL (NEGATIVE) 04/13/17 05:00 Urine Ketones NEGATIVE mg/dL (NEGATIVE) 04/13/17 05:00 Urine Blood NEGATIVE (NEGATIVE) 04/13/17 05:00 Urine Nitrate NEGATIVE (NEGATIVE) 04/13/17 05:00 Urine Bilirubin NEGATIVE (NEGATIVE) 04/13/17 05:00 Urine Urobilinogen 0.2 E.U./dL (0.2 - 1.0) 04/13/17 05:00 Ur Leukocyte Esterase NEGATIVE (NEGATIVE) 04/13/17 05:00 Urine RBC 2-5 /hpf (0-5) 04/13/17 05:00 Urine WBC 0-2 /hpf (0-5) 04/13/17 05:00 Ur Epithelial Cells FEW /lpf (FEW) 04/13/17 05:00 Urine Bacteria FEW /hpf (NONE SEEN) 04/13/17 05:00 Urine Mucus FEW /lpf (FEW) 04/13/17 05:00 - Physical Exam Vitals and I&O: Vital Signs Temp 97.5 F 04/18/17 06:11 Pulse 83 04/18/17 06:11 Resp 20 04/18/17 06:11 BP 148/77 04/18/17 06:11 Pulse Ox 97 04/18/17 06:11 Intake & Output 04/17/17 04/18/17 04/18/17 18:59 06:59 18:59 Intake Total 600 360 Balance 600 360 Intake: Oral 600 360 Other: # Voids 2 2 # Bowel Movements 0 Active Medications: Current Medications Acetaminophen (Tylenol) 650 mg PO Q4HR PRN PRN Reason: Mild Pain / Temp above 100 Stop: 06/12/17 08:29 Acetaminophen (Tylenol) 325 mg PO Q6HR PRN PRN Reason: Pain or Fever >101 Stop: 06/12/17 10:59 Al Hydrox/Mg Hydrox/Simethicone (Maalox) 30 ml PO Q4HR PRN PRN Reason: GI DISTRESS Stop: 06/12/17 08:29 Escitalopram Oxalate (Lexapro) 10 mg PO DAILY [facility] PRN Reason: Protocol Stop: 06/13/17 08:59 Last Admin: 04/18/17 11:25 Dose: Not Given Haloperidol (Haldol) 1 mg PO BID [facility] PRN Reason: Protocol Stop: 06/16/17 16:59 Last Admin: 04/18/17 11:25 Dose: Not Given Lorazepam (Ativan) 0.5 mg PO Q4HR PRN; Protocol PRN Reason: Agitation Stop: 05/13/17 08:29 Magnesium Hydroxide (Milk Of Magnesia) 30 ml PO HS PRN PRN Reason: Constipation Memantine (Namenda) 10 mg PO BID [facility] Stop: 06/12/17 16:59 Last Admin: 04/18/17 11:26 Dose: Not Given Metoprolol Succinate (Toprol Xl) 50 mg PO DAILY [facility] Stop: 06/13/17 08:59 Last Admin: 04/18/17 11:26 Dose: Not Given Multivitamins/Vitamin C (Theragran) 1 tab PO DAILY [facility] Stop: 06/12/17 08:59 Last Admin: 04/18/17 11:26 Dose: Not Given Multivitamins/Vitamin C (Theragran) 1 tab PO DAILY [facility] Stop: 06/13/17 08:59 Last Admin: 04/18/17 11:26 Dose: Not Given Zolpidem Tartrate (Ambien) 5 mg PO HS PRN PRN Reason: Insomnia Stop: 06/12/17 08:29 General: alert HEENT: NC/AT, PERRLA Neck: Supple Lungs: CTAB Cardiovascular: RRR, Normal S1, Normal S2, without murmur Abdomen: soft, non-tender, non-distended, positive bowel sound Extremities: excoriation Neurological: alert Internal Medicine Assmt/Plan - Assessment Assessment: depression si htn dementia - Plan Plan: SAFETY PRECAUTIONS MONITOR BP CONTINUE CURRENT PLAN OF CARE
--- NOTE | 2017-04-18 21:08 | Progress Notes ---
DATE: 04/18/2017 SUBJECTIVE: Staff was spoken to. The patient is interviewed. Mood is noted to be irritable. Affect is constricted. The patient is reluctant to take any medications. The patient has been isolating herself. Coping skills are noted to be very poor. The patient has been reluctant to get into any of the groups. No side effects to medications are noted. The patient continues to have short term memory deficits, but long-term memory seems to be fair. ASSESSMENT: The patient is still grossly psychotic and depressed. PLAN: To continue the patient on the current medications and follow up with the supportive therapy. JOB# [id number]
[2017-04-19] MEDS: Multivitamin Tab PO SCH ×2 (10:14)
--- NOTE | 2017-04-19 16:13 | Internal Medicine Prog Note ---
Internal Medicine Subjective - Subjective Service Date: 04/19/17 Patient is:: awake, verbal, talking Per staff patient has:: no adverse event, no episodes of fall, tolerating meds Internal Medicine Objective - Results Result Diagrams: 04/13/17 04:55 04/13/17 04:55 Recent Labs: Laboratory Last Values WBC 4.6 Th/cmm (4.8-10.8) L D 04/13/17 04:55 RBC 4.72 Mil/cmm (3.80-5.20) 04/13/17 04:55 Hgb 12.6 gm/dL (12-16) 04/13/17 04:55 Hct 38.4 % (41.0-60) L 04/13/17 04:55 MCV 81.5 fl (81-100) 04/13/17 04:55 MCH 26.7 pg (27.0-31.0) L 04/13/17 04:55 MCHC Differential 32.8 pg (28.0-36.0) 04/13/17 04:55 RDW 14.2 % (11.5-20.0) 04/13/17 04:55 Plt Count 179 Th/cmm (150-400) D 04/13/17 04:55 MPV 8.4 fl 04/13/17 04:55 Neutrophils % 56.2 % (40.0-80.0) 04/13/17 04:55 Lymphocytes % 33.4 % (20.0-50.0) 04/13/17 04:55 Monocytes % 8.2 % (2.0-10.0) 04/13/17 04:55 Eosinophils % 1.0 % (0.0-5.0) 04/13/17 04:55 Basophils % 1.2 % (0.0-2.0) 04/13/17 04:55 Sodium 137 mEq/L (136-145) 04/13/17 04:55 Potassium 3.7 mEq/L (3.5-5.1) 04/13/17 04:55 Chloride 107 mEq/L (98-107) 04/13/17 04:55 Carbon Dioxide 27.3 mEq/L (21.0-31.0) 04/13/17 04:55 Anion Gap 6.4 (7.0-16.0) L 04/13/17 04:55 BUN 15 mg/dL (7-25) 04/13/17 04:55 Creatinine 0.7 mg/dL (0.6-1.2) 04/13/17 04:55 Est GFR ( Amer) TNP 04/13/17 04:55 Est GFR (Non-Af Amer) TNP 04/13/17 04:55 BUN/Creatinine Ratio 21.4 04/13/17 04:55 Glucose 95 mg/dL (70-105) 04/13/17 04:55 Calcium 9.3 mg/dL (8.6-10.3) 04/13/17 04:55 Total Bilirubin 0.5 mg/dL (0.3-1.0) 04/13/17 04:55 AST 16 U/L (13-39) 04/13/17 04:55 ALT 20 U/L (7-52) 04/13/17 04:55 Alkaline Phosphatase 80 U/L (34-104) 04/13/17 04:55 Total Protein 6.3 gm/dL (6.0-8.3) 04/13/17 04:55 Albumin 3.6 gm/dL (3.7-5.3) L 04/13/17 04:55 Globulin 2.7 gm/dL 04/13/17 04:55 Albumin/Globulin Ratio 1.3 (1.0-1.8) 04/13/17 04:55 TSH 3.90 uIU/ml (0.34-5.60) 04/13/17 04:55 Urine Source MIDSTREAM 04/13/17 05:00 Urine Color YELLOW 04/13/17 05:00 Urine Clarity CLEAR (CLEAR) 04/13/17 05:00 Urine pH 7.5 (4.6 - 8.0) 04/13/17 05:00 Ur Specific [place] 1.015 (1.005-1.030) 04/13/17 05:00 Urine Protein NEGATIVE mg/dL (NEGATIVE) 04/13/17 05:00 Urine Glucose (UA) NEGATIVE mg/dL (NEGATIVE) 04/13/17 05:00 Urine Ketones NEGATIVE mg/dL (NEGATIVE) 04/13/17 05:00 Urine Blood NEGATIVE (NEGATIVE) 04/13/17 05:00 Urine Nitrate NEGATIVE (NEGATIVE) 04/13/17 05:00 Urine Bilirubin NEGATIVE (NEGATIVE) 04/13/17 05:00 Urine Urobilinogen 0.2 E.U./dL (0.2 - 1.0) 04/13/17 05:00 Ur Leukocyte Esterase NEGATIVE (NEGATIVE) 04/13/17 05:00 Urine RBC 2-5 /hpf (0-5) 04/13/17 05:00 Urine WBC 0-2 /hpf (0-5) 04/13/17 05:00 Ur Epithelial Cells FEW /lpf (FEW) 04/13/17 05:00 Urine Bacteria FEW /hpf (NONE SEEN) 04/13/17 05:00 Urine Mucus FEW /lpf (FEW) 04/13/17 05:00 - Physical Exam Vitals and I&O: Vital Signs Temp 97.6 F 04/19/17 06:48 Pulse 81 04/19/17 06:48 Resp 18 04/19/17 06:48 BP 121/65 04/19/17 06:48 Pulse Ox 99 04/19/17 06:48 Intake & Output 04/18/17 04/19/17 04/19/17 18:59 06:59 18:59 Intake Total 1200 360 Balance 1200 360 Intake: Oral 1200 360 Other: # Voids 3 2 # Bowel Movements 0 Active Medications: Current Medications Acetaminophen (Tylenol) 650 mg PO Q4HR PRN PRN Reason: Mild Pain / Temp above 100 Stop: 06/12/17 08:29 Acetaminophen (Tylenol) 325 mg PO Q6HR PRN PRN Reason: Pain or Fever >101 Stop: 06/12/17 10:59 Al Hydrox/Mg Hydrox/Simethicone (Maalox) 30 ml PO Q4HR PRN PRN Reason: GI DISTRESS Stop: 06/12/17 08:29 Escitalopram Oxalate (Lexapro) 10 mg PO DAILY [facility] PRN Reason: Protocol Stop: 06/13/17 08:59 Last Admin: 04/19/17 10:14 Dose: Not Given Haloperidol (Haldol) 1 mg PO BID [facility] PRN Reason: Protocol Stop: 06/16/17 16:59 Last Admin: 04/19/17 10:13 Dose: Not Given Lorazepam (Ativan) 0.5 mg PO Q4HR PRN; Protocol PRN Reason: Agitation Stop: 05/13/17 08:29 Magnesium Hydroxide (Milk Of Magnesia) 30 ml PO HS PRN PRN Reason: Constipation Memantine (Namenda) 10 mg PO BID [facility] Stop: 06/12/17 16:59 Last Admin: 04/19/17 10:14 Dose: Not Given Metoprolol Succinate (Toprol Xl) 50 mg PO DAILY [facility] Stop: 06/13/17 08:59 Last Admin: 04/19/17 10:14 Dose: Not Given Multivitamins/Vitamin C (Theragran) 1 tab PO DAILY [facility] Stop: 06/12/17 08:59 Last Admin: 04/19/17 10:14 Dose: Not Given Multivitamins/Vitamin C (Theragran) 1 tab PO DAILY [facility] Stop: 06/13/17 08:59 Last Admin: 04/19/17 10:14 Dose: Not Given Zolpidem Tartrate (Ambien) 5 mg PO HS PRN PRN Reason: Insomnia Stop: 06/12/17 08:29 General: alert HEENT: NC/AT, PERRLA Neck: Supple Lungs: CTAB Cardiovascular: RRR, Normal S1, Normal S2, without murmur Abdomen: soft, non-tender, non-distended, positive bowel sound Extremities: excoriation Neurological: alert Internal Medicine Assmt/Plan - Assessment Assessment: depression si htn dementia - Plan Plan: SAFETY PRECAUTIONS MONITOR BP CONTINUE CURRENT PLAN OF CARE Nutritional Asmnt/Malnutr-PDOC - Dietary Evaluation Malnutrition Findings (Please click <Entered> for more info): Nutritional Asmnt/Malnutrition Start: 04/18/17 13: 45 Text: Status: Complete Freq: Document 04/18/17 13:45 ELISE (Rec: 04/18/17 13:50 NANNETTE [email or web address]) Nutritional Asmnt/Malnutrition Patient General Information Nutritional Screening Moderate Risk Diagnosis Agitation Pertinent Medical Hx/Surgical Hx depression, dementia, HTN Subjective Information Per notes, PO intake 100% of all meals since admission. Current Diet Order/ Nutrition Support SIMRAN Pertinent Medications theragran Pertinent Labs / Alb 3.6 Nutritional Hx/Data Height 5 ft 8 in Height (Calculated Centimeters) 172.7 Current Weight (lbs) 175 lb Weight (Calculated Kilograms) 79.4 Weight (Calculated Grams) 92253.7 Gervais Body Weight 140 % Gervais Body Weight 125 Body Mass Index (BMI) 26.6 Weight Status Overweight GI Symptoms GI Symptoms None Last BM 1/5 Difficult in: None Cultural/Ethnic/Scientologist Belief shellfish Usual diet at home not able to obtain Skin Integrity/Comment: dryness Current %PO Good (75-100%) Estimated Nutritional Goals BEE in Kcals: Using Current wt Calories/Kcals/Kg 25-30 Kcals Calculated 2601-4753 Protein: Using Current wt Protein g/k.8-1 Protein Calculated 64-80 Fluid: ml [id number] Nutritional Problem No current Nutrition Prob Problem N/A Intervention/Recommendation Comments 1. Continue with current diet as ordered. 2. Monitor PO intake, wt, labs and skin integrity 3. F/U as low risk in 7 days, 04/25 Expected Outcomes/Goals Expected Outcomes/Goals 1. PO intake to meet at least 75% of nutritional needs. 2. Wt stability, skin to remain intact, labs to approach WNL.
--- NOTE | 2017-04-19 23:40 | Progress Notes ---
DATE: 04/19/2017 SUBJECTIVE: Staff was spoken to. The patient is interviewed. Mood is noted to be irritable. Affect is constricted. The patient is still isolative and withdrawn, refuses to get into the groups. Insight and judgment noted to be still impaired. Impulse control is noted to be poor. The patient has been refusing to comply with the treatment and hence the medication has been changed to the Haldol in case if the patient is to be IM dose of medication. The patient is also placed on the Lexapro 10 mg to help her with the depression. The patient has no insight into her illness at this time. ASSESSMENT: The patient is still psychotic and depressed. PLAN: To continue the patient with supportive therapy. I encouraged the patient to verbalize the concerns rather than to act out. JOB# [id number]
[2017-04-20] MEDS: Multivitamin Tab PO SCH ×2 (08:34)
--- NOTE | 2017-04-20 14:05 | Internal Medicine Prog Note ---
Internal Medicine Subjective - Subjective Service Date: 04/20/17 Patient is:: awake, verbal, talking Per staff patient has:: no adverse event, no episodes of fall, tolerating meds Internal Medicine Objective - Results Result Diagrams: 04/13/17 04:55 04/13/17 04:55 Recent Labs: Laboratory Last Values WBC 4.6 Th/cmm (4.8-10.8) L D 04/13/17 04:55 RBC 4.72 Mil/cmm (3.80-5.20) 04/13/17 04:55 Hgb 12.6 gm/dL (12-16) 04/13/17 04:55 Hct 38.4 % (41.0-60) L 04/13/17 04:55 MCV 81.5 fl (81-100) 04/13/17 04:55 MCH 26.7 pg (27.0-31.0) L 04/13/17 04:55 MCHC Differential 32.8 pg (28.0-36.0) 04/13/17 04:55 RDW 14.2 % (11.5-20.0) 04/13/17 04:55 Plt Count 179 Th/cmm (150-400) D 04/13/17 04:55 MPV 8.4 fl 04/13/17 04:55 Neutrophils % 56.2 % (40.0-80.0) 04/13/17 04:55 Lymphocytes % 33.4 % (20.0-50.0) 04/13/17 04:55 Monocytes % 8.2 % (2.0-10.0) 04/13/17 04:55 Eosinophils % 1.0 % (0.0-5.0) 04/13/17 04:55 Basophils % 1.2 % (0.0-2.0) 04/13/17 04:55 Sodium 137 mEq/L (136-145) 04/13/17 04:55 Potassium 3.7 mEq/L (3.5-5.1) 04/13/17 04:55 Chloride 107 mEq/L (98-107) 04/13/17 04:55 Carbon Dioxide 27.3 mEq/L (21.0-31.0) 04/13/17 04:55 Anion Gap 6.4 (7.0-16.0) L 04/13/17 04:55 BUN 15 mg/dL (7-25) 04/13/17 04:55 Creatinine 0.7 mg/dL (0.6-1.2) 04/13/17 04:55 Est GFR ( Amer) TNP 04/13/17 04:55 Est GFR (Non-Af Amer) TNP 04/13/17 04:55 BUN/Creatinine Ratio 21.4 04/13/17 04:55 Glucose 95 mg/dL (70-105) 04/13/17 04:55 Calcium 9.3 mg/dL (8.6-10.3) 04/13/17 04:55 Total Bilirubin 0.5 mg/dL (0.3-1.0) 04/13/17 04:55 AST 16 U/L (13-39) 04/13/17 04:55 ALT 20 U/L (7-52) 04/13/17 04:55 Alkaline Phosphatase 80 U/L (34-104) 04/13/17 04:55 Total Protein 6.3 gm/dL (6.0-8.3) 04/13/17 04:55 Albumin 3.6 gm/dL (3.7-5.3) L 04/13/17 04:55 Globulin 2.7 gm/dL 04/13/17 04:55 Albumin/Globulin Ratio 1.3 (1.0-1.8) 04/13/17 04:55 TSH 3.90 uIU/ml (0.34-5.60) 04/13/17 04:55 Urine Source MIDSTREAM 04/13/17 05:00 Urine Color YELLOW 04/13/17 05:00 Urine Clarity CLEAR (CLEAR) 04/13/17 05:00 Urine pH 7.5 (4.6 - 8.0) 04/13/17 05:00 Ur Specific [place] 1.015 (1.005-1.030) 04/13/17 05:00 Urine Protein NEGATIVE mg/dL (NEGATIVE) 04/13/17 05:00 Urine Glucose (UA) NEGATIVE mg/dL (NEGATIVE) 04/13/17 05:00 Urine Ketones NEGATIVE mg/dL (NEGATIVE) 04/13/17 05:00 Urine Blood NEGATIVE (NEGATIVE) 04/13/17 05:00 Urine Nitrate NEGATIVE (NEGATIVE) 04/13/17 05:00 Urine Bilirubin NEGATIVE (NEGATIVE) 04/13/17 05:00 Urine Urobilinogen 0.2 E.U./dL (0.2 - 1.0) 04/13/17 05:00 Ur Leukocyte Esterase NEGATIVE (NEGATIVE) 04/13/17 05:00 Urine RBC 2-5 /hpf (0-5) 04/13/17 05:00 Urine WBC 0-2 /hpf (0-5) 04/13/17 05:00 Ur Epithelial Cells FEW /lpf (FEW) 04/13/17 05:00 Urine Bacteria FEW /hpf (NONE SEEN) 04/13/17 05:00 Urine Mucus FEW /lpf (FEW) 04/13/17 05:00 - Physical Exam Vitals and I&O: Vital Signs Temp 99.3 F 04/20/17 06:06 Pulse 71 04/20/17 09:50 Resp 20 04/20/17 06:06 BP 138/72 04/20/17 09:50 Pulse Ox 97 04/20/17 06:06 Intake & Output 04/19/17 04/20/17 04/20/17 18:59 06:59 18:59 Intake Total 1200 370 Output Total 0 Balance 1200 370 Intake: Oral 1200 370 Output: Stool 0 Other: # Voids 2 2 # Bowel Movements 0 Stool Characteristics Soft Formed Active Medications: Current Medications Acetaminophen (Tylenol) 650 mg PO Q4HR PRN PRN Reason: Mild Pain / Temp above 100 Stop: 06/12/17 08:29 Acetaminophen (Tylenol) 325 mg PO Q6HR PRN PRN Reason: Pain or Fever >101 Stop: 06/12/17 10:59 Al Hydrox/Mg Hydrox/Simethicone (Maalox) 30 ml PO Q4HR PRN PRN Reason: GI DISTRESS Stop: 06/12/17 08:29 Escitalopram Oxalate (Lexapro) 10 mg PO DAILY [facility] PRN Reason: Protocol Stop: 06/13/17 08:59 Last Admin: 04/20/17 08:34 Dose: Not Given Haloperidol (Haldol) 1 mg PO BID [facility] PRN Reason: Protocol Stop: 06/16/17 16:59 Last Admin: 04/20/17 08:34 Dose: Not Given Lorazepam (Ativan) 0.5 mg PO Q4HR PRN; Protocol PRN Reason: Agitation Stop: 05/13/17 08:29 Magnesium Hydroxide (Milk Of Magnesia) 30 ml PO HS PRN PRN Reason: Constipation Memantine (Namenda) 10 mg PO BID [facility] Stop: 06/12/17 16:59 Last Admin: 04/20/17 08:34 Dose: Not Given Metoprolol Succinate (Toprol Xl) 50 mg PO DAILY [facility] Stop: 06/13/17 08:59 Last Admin: 04/20/17 09:50 Dose: Not Given Multivitamins/Vitamin C (Theragran) 1 tab PO DAILY [facility] Stop: 06/12/17 08:59 Last Admin: 04/20/17 08:34 Dose: Not Given Multivitamins/Vitamin C (Theragran) 1 tab PO DAILY [facility] Stop: 06/13/17 08:59 Last Admin: 04/20/17 08:34 Dose: Not Given Zolpidem Tartrate (Ambien) 5 mg PO HS PRN PRN Reason: Insomnia Stop: 06/12/17 08:29 General: alert HEENT: NC/AT, PERRLA Neck: Supple Lungs: CTAB Cardiovascular: RRR, Normal S1, Normal S2, without murmur Abdomen: soft, non-tender, non-distended, positive bowel sound Extremities: excoriation Neurological: alert Internal Medicine Assmt/Plan - Assessment Assessment: depression si htn dementia - Plan Plan: SAFETY PRECAUTIONS MONITOR BP CONTINUE CURRENT PLAN OF CARE Nutritional Asmnt/Malnutr-PDOC - Dietary Evaluation Malnutrition Findings (Please click <Entered> for more info): Nutritional Asmnt/Malnutrition Start: 04/18/17 13: 45 Text: Status: Complete Freq: Document 04/18/17 13:45 NANNETTE (Rec: 04/18/17 13:50 HEN [email or web address]) Nutritional Asmnt/Malnutrition Patient General Information Nutritional Screening Moderate Risk Diagnosis Agitation Pertinent Medical Hx/Surgical Hx depression, dementia, HTN Subjective Information Per notes, PO intake 100% of all meals since admission. Current Diet Order/ Nutrition Support SIMRAN Pertinent Medications theragran Pertinent Labs 1/3 Alb 3.6 Nutritional Hx/Data Height 5 ft 8 in Height (Calculated Centimeters) 172.7 Current Weight (lbs) 175 lb Weight (Calculated Kilograms) 79.4 Weight (Calculated Grams) 13829.7 [place] Body Weight 140 % [place] Body Weight 125 Body Mass Index (BMI) 26.6 Weight Status Overweight GI Symptoms GI Symptoms None Last BM 1/5 Difficult in: None Cultural/Ethnic/Church Belief shellfish Usual diet at home not able to obtain Skin Integrity/Comment: dryness Current %PO Good (75-100%) Estimated Nutritional Goals BEE in Kcals: Using Current wt Calories/Kcals/Kg 25-30 Kcals Calculated 3682-2696 Protein: Using Current wt Protein g/k.8-1 Protein Calculated 64-80 Fluid: ml 9555-3401 Nutritional Problem No current Nutrition Prob Problem N/A Intervention/Recommendation Comments 1. Continue with current diet as ordered. 2. Monitor PO intake, wt, labs and skin integrity 3. F/U as low risk in 7 days, 04/25 Expected Outcomes/Goals Expected Outcomes/Goals 1. PO intake to meet at least 75% of nutritional needs. 2. Wt stability, skin to remain intact, labs to approach WNL.
--- NOTE | 2017-04-20 17:38 | Progress Notes ---
DATE: 04/20/2017 SUBJECTIVE: Staff was spoken to. The patient is interviewed. Mood is noted to be irritable. Affect is constricted. The patient is still reluctant to comply with the medications. Insight and judgment at this time are noted to be still impaired. Impulse control is limited. The patient has to be encouraged to comply with the treatment. The patient has been stating that she not be on the medications. ASSESSMENT: The patient is still psychotic and depressed. PLAN: To continue the patient with the supportive therapy, encouraged the patient to verbalize the concerns rather than to act out. Please note that the patient is not ready to be discharged to a lower level of care yet. JOB# [id number]
[2017-04-21] MEDS: Multivitamin Tab PO SCH ×2 (10:36)
--- NOTE | 2017-04-21 13:33 | Internal Medicine Prog Note ---
Internal Medicine Subjective - Subjective Service Date: 04/21/17 Patient is:: awake, verbal, talking Per staff patient has:: no adverse event, no episodes of fall, tolerating meds Internal Medicine Objective - Results Result Diagrams: 04/13/17 04:55 04/13/17 04:55 Recent Labs: Laboratory Last Values WBC 4.6 Th/cmm (4.8-10.8) L D 04/13/17 04:55 RBC 4.72 Mil/cmm (3.80-5.20) 04/13/17 04:55 Hgb 12.6 gm/dL (12-16) 04/13/17 04:55 Hct 38.4 % (41.0-60) L 04/13/17 04:55 MCV 81.5 fl (81-100) 04/13/17 04:55 MCH 26.7 pg (27.0-31.0) L 04/13/17 04:55 MCHC Differential 32.8 pg (28.0-36.0) 04/13/17 04:55 RDW 14.2 % (11.5-20.0) 04/13/17 04:55 Plt Count 179 Th/cmm (150-400) D 04/13/17 04:55 MPV 8.4 fl 04/13/17 04:55 Neutrophils % 56.2 % (40.0-80.0) 04/13/17 04:55 Lymphocytes % 33.4 % (20.0-50.0) 04/13/17 04:55 Monocytes % 8.2 % (2.0-10.0) 04/13/17 04:55 Eosinophils % 1.0 % (0.0-5.0) 04/13/17 04:55 Basophils % 1.2 % (0.0-2.0) 04/13/17 04:55 Sodium 137 mEq/L (136-145) 04/13/17 04:55 Potassium 3.7 mEq/L (3.5-5.1) 04/13/17 04:55 Chloride 107 mEq/L (98-107) 04/13/17 04:55 Carbon Dioxide 27.3 mEq/L (21.0-31.0) 04/13/17 04:55 Anion Gap 6.4 (7.0-16.0) L 04/13/17 04:55 BUN 15 mg/dL (7-25) 04/13/17 04:55 Creatinine 0.7 mg/dL (0.6-1.2) 04/13/17 04:55 Est GFR ( Amer) TNP 04/13/17 04:55 Est GFR (Non-Af Amer) TNP 04/13/17 04:55 BUN/Creatinine Ratio 21.4 04/13/17 04:55 Glucose 95 mg/dL (70-105) 04/13/17 04:55 Calcium 9.3 mg/dL (8.6-10.3) 04/13/17 04:55 Total Bilirubin 0.5 mg/dL (0.3-1.0) 04/13/17 04:55 AST 16 U/L (13-39) 04/13/17 04:55 ALT 20 U/L (7-52) 04/13/17 04:55 Alkaline Phosphatase 80 U/L (34-104) 04/13/17 04:55 Total Protein 6.3 gm/dL (6.0-8.3) 04/13/17 04:55 Albumin 3.6 gm/dL (3.7-5.3) L 04/13/17 04:55 Globulin 2.7 gm/dL 04/13/17 04:55 Albumin/Globulin Ratio 1.3 (1.0-1.8) 04/13/17 04:55 TSH 3.90 uIU/ml (0.34-5.60) 04/13/17 04:55 Urine Source MIDSTREAM 04/13/17 05:00 Urine Color YELLOW 04/13/17 05:00 Urine Clarity CLEAR (CLEAR) 04/13/17 05:00 Urine pH 7.5 (4.6 - 8.0) 04/13/17 05:00 Ur Specific [place] 1.015 (1.005-1.030) 04/13/17 05:00 Urine Protein NEGATIVE mg/dL (NEGATIVE) 04/13/17 05:00 Urine Glucose (UA) NEGATIVE mg/dL (NEGATIVE) 04/13/17 05:00 Urine Ketones NEGATIVE mg/dL (NEGATIVE) 04/13/17 05:00 Urine Blood NEGATIVE (NEGATIVE) 04/13/17 05:00 Urine Nitrate NEGATIVE (NEGATIVE) 04/13/17 05:00 Urine Bilirubin NEGATIVE (NEGATIVE) 04/13/17 05:00 Urine Urobilinogen 0.2 E.U./dL (0.2 - 1.0) 04/13/17 05:00 Ur Leukocyte Esterase NEGATIVE (NEGATIVE) 04/13/17 05:00 Urine RBC 2-5 /hpf (0-5) 04/13/17 05:00 Urine WBC 0-2 /hpf (0-5) 04/13/17 05:00 Ur Epithelial Cells FEW /lpf (FEW) 04/13/17 05:00 Urine Bacteria FEW /hpf (NONE SEEN) 04/13/17 05:00 Urine Mucus FEW /lpf (FEW) 04/13/17 05:00 - Physical Exam Vitals and I&O: Vital Signs Temp 97.8 F 04/21/17 06:37 Pulse 77 04/21/17 06:37 Resp 20 04/21/17 06:37 BP 111/76 04/21/17 06:37 Pulse Ox 98 04/21/17 06:37 Intake & Output 04/20/17 04/21/17 04/21/17 18:59 06:59 18:59 Intake Total 900 120 Balance 900 120 Intake: Oral 900 120 Other: # Voids 4 3 # Bowel Movements 1 Active Medications: Current Medications Acetaminophen (Tylenol) 650 mg PO Q4HR PRN PRN Reason: Mild Pain / Temp above 100 Stop: 06/12/17 08:29 Acetaminophen (Tylenol) 325 mg PO Q6HR PRN PRN Reason: Pain or Fever >101 Stop: 06/12/17 10:59 Al Hydrox/Mg Hydrox/Simethicone (Maalox) 30 ml PO Q4HR PRN PRN Reason: GI DISTRESS Stop: 06/12/17 08:29 Escitalopram Oxalate (Lexapro) 10 mg PO DAILY [facility] PRN Reason: Protocol Stop: 06/13/17 08:59 Last Admin: 04/21/17 10:36 Dose: Not Given Fluoxetine HCl (Prozac) 10 mg PO DAILY [facility] PRN Reason: Protocol Stop: 06/21/17 08:59 Haloperidol (Haldol) 1 mg PO BID [facility] PRN Reason: Protocol Stop: 06/16/17 16:59 Last Admin: 04/21/17 10:36 Dose: Not Given Lorazepam (Ativan) 0.5 mg PO Q4HR PRN; Protocol PRN Reason: Agitation Stop: 05/13/17 08:29 Magnesium Hydroxide (Milk Of Magnesia) 30 ml PO HS PRN PRN Reason: Constipation Memantine (Namenda) 10 mg PO BID [facility] Stop: 06/12/17 16:59 Last Admin: 04/21/17 10:36 Dose: Not Given Metoprolol Succinate (Toprol Xl) 50 mg PO DAILY [facility] Stop: 06/13/17 08:59 Last Admin: 04/21/17 10:36 Dose: Not Given Multivitamins/Vitamin C (Theragran) 1 tab PO DAILY [facility] Stop: 06/12/17 08:59 Last Admin: 04/21/17 10:36 Dose: Not Given Multivitamins/Vitamin C (Theragran) 1 tab PO DAILY [facility] Stop: 06/13/17 08:59 Last Admin: 04/21/17 10:36 Dose: Not Given Zolpidem Tartrate (Ambien) 5 mg PO HS PRN PRN Reason: Insomnia Stop: 06/12/17 08:29 General: alert HEENT: NC/AT, PERRLA Neck: Supple Lungs: CTAB Cardiovascular: RRR, Normal S1, Normal S2, without murmur Abdomen: soft, non-tender, non-distended, positive bowel sound Extremities: excoriation Neurological: alert Internal Medicine Assmt/Plan - Assessment Assessment: depression si htn dementia - Plan Plan: SAFETY PRECAUTIONS MONITOR BP CONTINUE CURRENT PLAN OF CARE Nutritional Asmnt/Malnutr-PDOC - Dietary Evaluation Malnutrition Findings (Please click <Entered> for more info): Nutritional Asmnt/Malnutrition Start: 04/18/17 13: 45 Text: Status: Complete Freq: Document 04/18/17 13:45 NANNETTE (Rec: 04/18/17 13:50 HEN [email or web address]) Nutritional Asmnt/Malnutrition Patient General Information Nutritional Screening Moderate Risk Diagnosis Agitation Pertinent Medical Hx/Surgical Hx depression, dementia, HTN Subjective Information Per notes, PO intake 100% of all meals since admission. Current Diet Order/ Nutrition Support SIMRAN Pertinent Medications theragran Pertinent Labs 1/3 Alb 3.6 Nutritional Hx/Data Height 5 ft 8 in Height (Calculated Centimeters) 172.7 Current Weight (lbs) 175 lb Weight (Calculated Kilograms) 79.4 Weight (Calculated Grams) 60789.7 [place] Body Weight 140 % [place] Body Weight 125 Body Mass Index (BMI) 26.6 Weight Status Overweight GI Symptoms GI Symptoms None Last BM 1/5 Difficult in: None Cultural/Ethnic/Religion Belief shellfish Usual diet at home not able to obtain Skin Integrity/Comment: dryness Current %PO Good (75-100%) Estimated Nutritional Goals BEE in Kcals: Using Current wt Calories/Kcals/Kg 25-30 Kcals Calculated 3566-3772 Protein: Using Current wt Protein g/k.8-1 Protein Calculated 64-80 Fluid: ml 0245-7599 Nutritional Problem No current Nutrition Prob Problem N/A Intervention/Recommendation Comments 1. Continue with current diet as ordered. 2. Monitor PO intake, wt, labs and skin integrity 3. F/U as low risk in 7 days, 04/25 Expected Outcomes/Goals Expected Outcomes/Goals 1. PO intake to meet at least 75% of nutritional needs. 2. Wt stability, skin to remain intact, labs to approach WNL.
--- NOTE | 2017-04-21 23:05 | Progress Notes ---
DATE: 04/21/2017 SUBJECTIVE: The patient is isolated and withdrawn. The patient's personal hygiene is noted to be extremely poor. The patient refuses to get into the room. Coping skills are noted to be very poor. The patient is responding to internal stimuli, but denies any command hallucinations. The patient is very paranoid at this time. ASSESSMENT: The patient is still psychotic and depressed. PLAN: Continue the patient with the change of medications, which is the antidepressant medication, Prozac has been started on the liquid form. The patient is going to be closely monitored and followed up. Please note that the patient is not ready to be discharged to a lower level of care yet. JOB# [id number]
[2017-04-22] MEDS: Multivitamin Tab PO SCH ×2 (08:42)
[2017-04-22] MEDS: FLUOXETINE HCL 20 MG/5 ML PO SCH (08:42)
[2017-04-22] MEDS ORDERED: FLUOXETINE HCL 20 MG/5 ML PO SCH (09:00)
--- NOTE | 2017-04-22 11:54 | Progress Notes ---
DATE: 04/22/2017 PSYCHIATRIC PROGRESS NOTE Staff was spoken to. The patient is interviewed. Mood is noted to be irritable. Affect is constricted. The patient is isolative and withdrawn. The patient is reluctant to take any of the medications, stating that she is not sick. The patient is very paranoid at this time. No side effects to medications are noted. We are trying to medicate the patient with Haldol on as needed basis, but the patient is reluctant to take it as the patient at this time is being closely monitored and is going to be continued with the liquid Prozac. The patient is going to be continued on the haloperidol and followed up with the supportive therapy. The patient at this time is not ready to be discharged to a lower level of care in view of her psychosis. JOB# [id number]
--- NOTE | 2017-04-22 15:02 | Internal Medicine Prog Note ---
Internal Medicine Subjective - Subjective Service Date: 04/22/17 Patient is:: awake, verbal, talking Per staff patient has:: no adverse event, no episodes of fall, tolerating meds Internal Medicine Objective - Results Result Diagrams: 04/13/17 04:55 04/13/17 04:55 Recent Labs: Laboratory Last Values WBC 4.6 Th/cmm (4.8-10.8) L D 04/13/17 04:55 RBC 4.72 Mil/cmm (3.80-5.20) 04/13/17 04:55 Hgb 12.6 gm/dL (12-16) 04/13/17 04:55 Hct 38.4 % (41.0-60) L 04/13/17 04:55 MCV 81.5 fl (81-100) 04/13/17 04:55 MCH 26.7 pg (27.0-31.0) L 04/13/17 04:55 MCHC Differential 32.8 pg (28.0-36.0) 04/13/17 04:55 RDW 14.2 % (11.5-20.0) 04/13/17 04:55 Plt Count 179 Th/cmm (150-400) D 04/13/17 04:55 MPV 8.4 fl 04/13/17 04:55 Neutrophils % 56.2 % (40.0-80.0) 04/13/17 04:55 Lymphocytes % 33.4 % (20.0-50.0) 04/13/17 04:55 Monocytes % 8.2 % (2.0-10.0) 04/13/17 04:55 Eosinophils % 1.0 % (0.0-5.0) 04/13/17 04:55 Basophils % 1.2 % (0.0-2.0) 04/13/17 04:55 Sodium 137 mEq/L (136-145) 04/13/17 04:55 Potassium 3.7 mEq/L (3.5-5.1) 04/13/17 04:55 Chloride 107 mEq/L (98-107) 04/13/17 04:55 Carbon Dioxide 27.3 mEq/L (21.0-31.0) 04/13/17 04:55 Anion Gap 6.4 (7.0-16.0) L 04/13/17 04:55 BUN 15 mg/dL (7-25) 04/13/17 04:55 Creatinine 0.7 mg/dL (0.6-1.2) 04/13/17 04:55 Est GFR ( Amer) TNP 04/13/17 04:55 Est GFR (Non-Af Amer) TNP 04/13/17 04:55 BUN/Creatinine Ratio 21.4 04/13/17 04:55 Glucose 95 mg/dL (70-105) 04/13/17 04:55 Calcium 9.3 mg/dL (8.6-10.3) 04/13/17 04:55 Total Bilirubin 0.5 mg/dL (0.3-1.0) 04/13/17 04:55 AST 16 U/L (13-39) 04/13/17 04:55 ALT 20 U/L (7-52) 04/13/17 04:55 Alkaline Phosphatase 80 U/L (34-104) 04/13/17 04:55 Total Protein 6.3 gm/dL (6.0-8.3) 04/13/17 04:55 Albumin 3.6 gm/dL (3.7-5.3) L 04/13/17 04:55 Globulin 2.7 gm/dL 04/13/17 04:55 Albumin/Globulin Ratio 1.3 (1.0-1.8) 04/13/17 04:55 TSH 3.90 uIU/ml (0.34-5.60) 04/13/17 04:55 Urine Source MIDSTREAM 04/13/17 05:00 Urine Color YELLOW 04/13/17 05:00 Urine Clarity CLEAR (CLEAR) 04/13/17 05:00 Urine pH 7.5 (4.6 - 8.0) 04/13/17 05:00 Ur Specific [place] 1.015 (1.005-1.030) 04/13/17 05:00 Urine Protein NEGATIVE mg/dL (NEGATIVE) 04/13/17 05:00 Urine Glucose (UA) NEGATIVE mg/dL (NEGATIVE) 04/13/17 05:00 Urine Ketones NEGATIVE mg/dL (NEGATIVE) 04/13/17 05:00 Urine Blood NEGATIVE (NEGATIVE) 04/13/17 05:00 Urine Nitrate NEGATIVE (NEGATIVE) 04/13/17 05:00 Urine Bilirubin NEGATIVE (NEGATIVE) 04/13/17 05:00 Urine Urobilinogen 0.2 E.U./dL (0.2 - 1.0) 04/13/17 05:00 Ur Leukocyte Esterase NEGATIVE (NEGATIVE) 04/13/17 05:00 Urine RBC 2-5 /hpf (0-5) 04/13/17 05:00 Urine WBC 0-2 /hpf (0-5) 04/13/17 05:00 Ur Epithelial Cells FEW /lpf (FEW) 04/13/17 05:00 Urine Bacteria FEW /hpf (NONE SEEN) 04/13/17 05:00 Urine Mucus FEW /lpf (FEW) 04/13/17 05:00 - Physical Exam Vitals and I&O: Vital Signs Temp 97.8 F 04/22/17 14:57 Pulse 71 04/22/17 14:57 Resp 18 04/22/17 14:57 BP 116/71 04/22/17 14:57 Pulse Ox 98 04/22/17 14:57 Intake & Output 04/21/17 04/22/17 04/22/17 18:59 06:59 18:59 Intake Total 1200 Balance 1200 Intake: Oral 1200 Other: # Bowel Movements 1 Active Medications: Current Medications Acetaminophen (Tylenol) 650 mg PO Q4HR PRN PRN Reason: Mild Pain / Temp above 100 Stop: 06/12/17 08:29 Acetaminophen (Tylenol) 325 mg PO Q6HR PRN PRN Reason: Pain or Fever >101 Stop: 06/12/17 10:59 Al Hydrox/Mg Hydrox/Simethicone (Maalox) 30 ml PO Q4HR PRN PRN Reason: GI DISTRESS Stop: 06/12/17 08:29 Fluoxetine HCl (Prozac) 10 mg PO DAILY [facility] PRN Reason: Protocol Stop: 06/21/17 08:59 Last Admin: 04/22/17 08:42 Dose: Not Given Haloperidol (Haldol) 1 mg PO BID [facility] PRN Reason: Protocol Stop: 06/16/17 16:59 Last Admin: 04/22/17 08:42 Dose: Not Given Lorazepam (Ativan) 0.5 mg PO Q4HR PRN; Protocol PRN Reason: Agitation Stop: 05/13/17 08:29 Magnesium Hydroxide (Milk Of Magnesia) 30 ml PO HS PRN PRN Reason: Constipation Memantine (Namenda) 10 mg PO BID [facility] Stop: 06/12/17 16:59 Last Admin: 04/22/17 08:42 Dose: Not Given Metoprolol Succinate (Toprol Xl) 50 mg PO DAILY [facility] Stop: 06/13/17 08:59 Last Admin: 04/22/17 08:42 Dose: Not Given Multivitamins/Vitamin C (Theragran) 1 tab PO DAILY [facility] Stop: 06/12/17 08:59 Last Admin: 04/22/17 08:42 Dose: Not Given Multivitamins/Vitamin C (Theragran) 1 tab PO DAILY [facility] Stop: 06/13/17 08:59 Last Admin: 04/22/17 08:42 Dose: Not Given Zolpidem Tartrate (Ambien) 5 mg PO HS PRN PRN Reason: Insomnia Stop: 06/12/17 08:29 General: alert HEENT: NC/AT, PERRLA Neck: Supple Lungs: CTAB Cardiovascular: RRR, Normal S1, Normal S2, without murmur Abdomen: soft, non-tender, non-distended, positive bowel sound Extremities: excoriation Neurological: alert Internal Medicine Assmt/Plan - Assessment Assessment: depression si htn dementia - Plan Plan: SAFETY PRECAUTIONS MONITOR BP CONTINUE CURRENT PLAN OF CARE Nutritional Asmnt/Malnutr-PDOC - Dietary Evaluation Malnutrition Findings (Please click <Entered> for more info): Nutritional Asmnt/Malnutrition Start: 04/18/17 13: 45 Text: Status: Complete Freq: Document 04/18/17 13:45 ELISE (Rec: 04/18/17 13:50 LCHEN [email or web address]) Nutritional Asmnt/Malnutrition Patient General Information Nutritional Screening Moderate Risk Diagnosis Agitation Pertinent Medical Hx/Surgical Hx depression, dementia, HTN Subjective Information Per notes, PO intake 100% of all meals since admission. Current Diet Order/ Nutrition Support SIMRAN Pertinent Medications theragran Pertinent Labs 04/13 Alb 3.6 Nutritional Hx/Data Height 5 ft 8 in Height (Calculated Centimeters) 172.7 Current Weight (lbs) 175 lb Weight (Calculated Kilograms) 79.4 Weight (Calculated Grams) 13826.7 [place] Body Weight 140 % [place] Body Weight 125 Body Mass Index (BMI) 26.6 Weight Status Overweight GI Symptoms GI Symptoms None Last BM 04/15 Difficult in: None Cultural/Ethnic/[employer]ish Belief shellfish Usual diet at home not able to obtain Skin Integrity/Comment: dryness Current %PO Good (75-100%) Estimated Nutritional Goals BEE in Kcals: Using Current wt Calories/Kcals/Kg 25-30 Kcals Calculated 3358-1513 Protein: Using Current wt Protein g/k.8-1 Protein Calculated 64-80 Fluid: ml 0470-0590 Nutritional Problem No current Nutrition Prob Problem N/A Intervention/Recommendation Comments 1. Continue with current diet as ordered. 2. Monitor PO intake, wt, labs and skin integrity 3. F/U as low risk in 7 days, 04/25 Expected Outcomes/Goals Expected Outcomes/Goals 1. PO intake to meet at least 75% of nutritional needs. 2. Wt stability, skin to remain intact, labs to approach WNL.
[2017-04-23] MEDS: FLUOXETINE HCL 20 MG/5 ML PO SCH (08:24)
[2017-04-23] MEDS: Multivitamin Tab PO SCH ×2 (08:24)
--- NOTE | 2017-04-23 16:44 | Internal Medicine Prog Note ---
Internal Medicine Subjective - Subjective Service Date: 04/23/17 Patient is:: awake, verbal, talking Per staff patient has:: no adverse event, no episodes of fall, tolerating meds Internal Medicine Objective - Results Result Diagrams: 04/13/17 04:55 04/13/17 04:55 Recent Labs: Laboratory Last Values WBC 4.6 Th/cmm (4.8-10.8) L D 04/13/17 04:55 RBC 4.72 Mil/cmm (3.80-5.20) 04/13/17 04:55 Hgb 12.6 gm/dL (12-16) 04/13/17 04:55 Hct 38.4 % (41.0-60) L 04/13/17 04:55 MCV 81.5 fl (81-100) 04/13/17 04:55 MCH 26.7 pg (27.0-31.0) L 04/13/17 04:55 MCHC Differential 32.8 pg (28.0-36.0) 04/13/17 04:55 RDW 14.2 % (11.5-20.0) 04/13/17 04:55 Plt Count 179 Th/cmm (150-400) D 04/13/17 04:55 MPV 8.4 fl 04/13/17 04:55 Neutrophils % 56.2 % (40.0-80.0) 04/13/17 04:55 Lymphocytes % 33.4 % (20.0-50.0) 04/13/17 04:55 Monocytes % 8.2 % (2.0-10.0) 04/13/17 04:55 Eosinophils % 1.0 % (0.0-5.0) 04/13/17 04:55 Basophils % 1.2 % (0.0-2.0) 04/13/17 04:55 Sodium 137 mEq/L (136-145) 04/13/17 04:55 Potassium 3.7 mEq/L (3.5-5.1) 04/13/17 04:55 Chloride 107 mEq/L (98-107) 04/13/17 04:55 Carbon Dioxide 27.3 mEq/L (21.0-31.0) 04/13/17 04:55 Anion Gap 6.4 (7.0-16.0) L 04/13/17 04:55 BUN 15 mg/dL (7-25) 04/13/17 04:55 Creatinine 0.7 mg/dL (0.6-1.2) 04/13/17 04:55 Est GFR ( Amer) TNP 04/13/17 04:55 Est GFR (Non-Af Amer) TNP 04/13/17 04:55 BUN/Creatinine Ratio 21.4 04/13/17 04:55 Glucose 95 mg/dL (70-105) 04/13/17 04:55 Calcium 9.3 mg/dL (8.6-10.3) 04/13/17 04:55 Total Bilirubin 0.5 mg/dL (0.3-1.0) 04/13/17 04:55 AST 16 U/L (13-39) 04/13/17 04:55 ALT 20 U/L (7-52) 04/13/17 04:55 Alkaline Phosphatase 80 U/L (34-104) 04/13/17 04:55 Total Protein 6.3 gm/dL (6.0-8.3) 04/13/17 04:55 Albumin 3.6 gm/dL (3.7-5.3) L 04/13/17 04:55 Globulin 2.7 gm/dL 04/13/17 04:55 Albumin/Globulin Ratio 1.3 (1.0-1.8) 04/13/17 04:55 TSH 3.90 uIU/ml (0.34-5.60) 04/13/17 04:55 Urine Source MIDSTREAM 04/13/17 05:00 Urine Color YELLOW 04/13/17 05:00 Urine Clarity CLEAR (CLEAR) 04/13/17 05:00 Urine pH 7.5 (4.6 - 8.0) 04/13/17 05:00 Ur Specific [place] 1.015 (1.005-1.030) 04/13/17 05:00 Urine Protein NEGATIVE mg/dL (NEGATIVE) 04/13/17 05:00 Urine Glucose (UA) NEGATIVE mg/dL (NEGATIVE) 04/13/17 05:00 Urine Ketones NEGATIVE mg/dL (NEGATIVE) 04/13/17 05:00 Urine Blood NEGATIVE (NEGATIVE) 04/13/17 05:00 Urine Nitrate NEGATIVE (NEGATIVE) 04/13/17 05:00 Urine Bilirubin NEGATIVE (NEGATIVE) 04/13/17 05:00 Urine Urobilinogen 0.2 E.U./dL (0.2 - 1.0) 04/13/17 05:00 Ur Leukocyte Esterase NEGATIVE (NEGATIVE) 04/13/17 05:00 Urine RBC 2-5 /hpf (0-5) 04/13/17 05:00 Urine WBC 0-2 /hpf (0-5) 04/13/17 05:00 Ur Epithelial Cells FEW /lpf (FEW) 04/13/17 05:00 Urine Bacteria FEW /hpf (NONE SEEN) 04/13/17 05:00 Urine Mucus FEW /lpf (FEW) 04/13/17 05:00 - Physical Exam Vitals and I&O: Vital Signs Temp 97.6 F 04/23/17 15:30 Pulse 76 04/23/17 15:30 Resp 20 04/23/17 15:30 BP 130/76 04/23/17 15:30 Pulse Ox 96 04/23/17 15:30 Intake & Output 04/22/17 04/23/17 04/23/17 18:59 06:59 18:59 Intake Total 1200 240 Balance 1200 240 Intake: Oral 1200 240 Other: # Voids 3 2 Active Medications: Current Medications Acetaminophen (Tylenol) 650 mg PO Q4HR PRN PRN Reason: Mild Pain / Temp above 100 Stop: 06/12/17 08:29 Acetaminophen (Tylenol) 325 mg PO Q6HR PRN PRN Reason: Pain or Fever >101 Stop: 06/12/17 10:59 Al Hydrox/Mg Hydrox/Simethicone (Maalox) 30 ml PO Q4HR PRN PRN Reason: GI DISTRESS Stop: 06/12/17 08:29 Fluoxetine HCl (Prozac) 10 mg PO DAILY [facility] PRN Reason: Protocol Stop: 06/21/17 08:59 Last Admin: 04/23/17 08:24 Dose: Not Given Haloperidol (Haldol) 1 mg PO BID [facility] PRN Reason: Protocol Stop: 06/16/17 16:59 Last Admin: 04/23/17 08:24 Dose: Not Given Lorazepam (Ativan) 0.5 mg PO Q4HR PRN; Protocol PRN Reason: Agitation Stop: 05/13/17 08:29 Magnesium Hydroxide (Milk Of Magnesia) 30 ml PO HS PRN PRN Reason: Constipation Memantine (Namenda) 10 mg PO BID [facility] Stop: 06/12/17 16:59 Last Admin: 04/23/17 08:24 Dose: Not Given Metoprolol Succinate (Toprol Xl) 50 mg PO DAILY [facility] Stop: 06/13/17 08:59 Last Admin: 04/23/17 08:24 Dose: Not Given Multivitamins/Vitamin C (Theragran) 1 tab PO DAILY [facility] Stop: 06/12/17 08:59 Last Admin: 04/23/17 08:24 Dose: Not Given Multivitamins/Vitamin C (Theragran) 1 tab PO DAILY [facility] Stop: 06/13/17 08:59 Last Admin: 04/23/17 08:24 Dose: Not Given Zolpidem Tartrate (Ambien) 5 mg PO HS PRN PRN Reason: Insomnia Stop: 06/12/17 08:29 General: alert HEENT: NC/AT, PERRLA Neck: Supple Lungs: CTAB Cardiovascular: RRR, Normal S1, Normal S2, without murmur Abdomen: soft, non-tender, non-distended, positive bowel sound Extremities: excoriation Neurological: alert Internal Medicine Assmt/Plan - Assessment Assessment: depression si htn dementia - Plan Plan: SAFETY PRECAUTIONS MONITOR BP CONTINUE CURRENT PLAN OF CARE Nutritional Asmnt/Malnutr-PDOC - Dietary Evaluation Malnutrition Findings (Please click <Entered> for more info): Nutritional Asmnt/Malnutrition Start: 04/18/17 13: 45 Text: Status: Complete Freq: Document 04/18/17 13:45 ELISE (Rec: 04/18/17 13:50 LCHENG [email or web address]) Nutritional Asmnt/Malnutrition Patient General Information Nutritional Screening Moderate Risk Diagnosis Agitation Pertinent Medical Hx/Surgical Hx depression, dementia, HTN Subjective Information Per notes, PO intake 100% of all meals since admission. Current Diet Order/ Nutrition Support SIMRAN Pertinent Medications theragran Pertinent Labs / Alb 3.6 Nutritional Hx/Data Height 5 ft 8 in Height (Calculated Centimeters) 172.7 Current Weight (lbs) 175 lb Weight (Calculated Kilograms) 79.4 Weight (Calculated Grams) 90815.7 [place] Body Weight 140 % [place] Body Weight 125 Body Mass Index (BMI) 26.6 Weight Status Overweight GI Symptoms GI Symptoms None Last BM 1 Difficult in: None Cultural/Ethnic/Religion Belief shellfish Usual diet at home not able to obtain Skin Integrity/Comment: dryness Current %PO Good (75-100%) Estimated Nutritional Goals BEE in Kcals: Using Current wt Calories/Kcals/Kg 25-30 Kcals Calculated 6730-0727 Protein: Using Current wt Protein g/k.8-1 Protein Calculated 64-80 Fluid: ml 7009-9216 Nutritional Problem No current Nutrition Prob Problem N/A Intervention/Recommendation Comments 1. Continue with current diet as ordered. 2. Monitor PO intake, wt, labs and skin integrity 3. F/U as low risk in 7 days, 04/25 Expected Outcomes/Goals Expected Outcomes/Goals 1. PO intake to meet at least 75% of nutritional needs. 2. Wt stability, skin to remain intact, labs to approach WNL.
--- NOTE | 2017-04-23 17:09 | Progress Notes ---
DATE: 04/23/2017 SUBJECTIVE: Staff was spoken to. The patient is interviewed. The patient is isolative and withdrawn. The patient is still responding to internal stimuli, has been reluctant to take the medication, but we have not had a chance to medicate her against her will because the patient is not getting aggressive. No side effects to the medication. The patient has no insight into her illness. The patient has been informed of taking medication, but the patient has been refusing to do so. ASSESSMENT: The patient is still psychotic. PLAN: To encourage the patient to comply with the medication and followup. JOB# [id number]
[2017-04-24] MEDS: FLUOXETINE HCL 20 MG/5 ML PO SCH (13:24)
[2017-04-24] MEDS: Multivitamin Tab PO SCH ×2 (13:25)
--- NOTE | 2017-04-24 13:31 | Internal Medicine Prog Note ---
Internal Medicine Subjective - Subjective Service Date: 04/24/17 Patient is:: awake, verbal, talking Per staff patient has:: no adverse event, no episodes of fall, tolerating meds Internal Medicine Objective - Results Result Diagrams: 04/13/17 04:55 04/13/17 04:55 Recent Labs: Laboratory Last Values WBC 4.6 Th/cmm (4.8-10.8) L D 04/13/17 04:55 RBC 4.72 Mil/cmm (3.80-5.20) 04/13/17 04:55 Hgb 12.6 gm/dL (12-16) 04/13/17 04:55 Hct 38.4 % (41.0-60) L 04/13/17 04:55 MCV 81.5 fl (81-100) 04/13/17 04:55 MCH 26.7 pg (27.0-31.0) L 04/13/17 04:55 MCHC Differential 32.8 pg (28.0-36.0) 04/13/17 04:55 RDW 14.2 % (11.5-20.0) 04/13/17 04:55 Plt Count 179 Th/cmm (150-400) D 04/13/17 04:55 MPV 8.4 fl 04/13/17 04:55 Neutrophils % 56.2 % (40.0-80.0) 04/13/17 04:55 Lymphocytes % 33.4 % (20.0-50.0) 04/13/17 04:55 Monocytes % 8.2 % (2.0-10.0) 04/13/17 04:55 Eosinophils % 1.0 % (0.0-5.0) 04/13/17 04:55 Basophils % 1.2 % (0.0-2.0) 04/13/17 04:55 Sodium 137 mEq/L (136-145) 04/13/17 04:55 Potassium 3.7 mEq/L (3.5-5.1) 04/13/17 04:55 Chloride 107 mEq/L (98-107) 04/13/17 04:55 Carbon Dioxide 27.3 mEq/L (21.0-31.0) 04/13/17 04:55 Anion Gap 6.4 (7.0-16.0) L 04/13/17 04:55 BUN 15 mg/dL (7-25) 04/13/17 04:55 Creatinine 0.7 mg/dL (0.6-1.2) 04/13/17 04:55 Est GFR ( Amer) TNP 04/13/17 04:55 Est GFR (Non-Af Amer) TNP 04/13/17 04:55 BUN/Creatinine Ratio 21.4 04/13/17 04:55 Glucose 95 mg/dL (70-105) 04/13/17 04:55 Calcium 9.3 mg/dL (8.6-10.3) 04/13/17 04:55 Total Bilirubin 0.5 mg/dL (0.3-1.0) 04/13/17 04:55 AST 16 U/L (13-39) 04/13/17 04:55 ALT 20 U/L (7-52) 04/13/17 04:55 Alkaline Phosphatase 80 U/L (34-104) 04/13/17 04:55 Total Protein 6.3 gm/dL (6.0-8.3) 04/13/17 04:55 Albumin 3.6 gm/dL (3.7-5.3) L 04/13/17 04:55 Globulin 2.7 gm/dL 04/13/17 04:55 Albumin/Globulin Ratio 1.3 (1.0-1.8) 04/13/17 04:55 TSH 3.90 uIU/ml (0.34-5.60) 04/13/17 04:55 Urine Source MIDSTREAM 04/13/17 05:00 Urine Color YELLOW 04/13/17 05:00 Urine Clarity CLEAR (CLEAR) 04/13/17 05:00 Urine pH 7.5 (4.6 - 8.0) 04/13/17 05:00 Ur Specific [place] 1.015 (1.005-1.030) 04/13/17 05:00 Urine Protein NEGATIVE mg/dL (NEGATIVE) 04/13/17 05:00 Urine Glucose (UA) NEGATIVE mg/dL (NEGATIVE) 04/13/17 05:00 Urine Ketones NEGATIVE mg/dL (NEGATIVE) 04/13/17 05:00 Urine Blood NEGATIVE (NEGATIVE) 04/13/17 05:00 Urine Nitrate NEGATIVE (NEGATIVE) 04/13/17 05:00 Urine Bilirubin NEGATIVE (NEGATIVE) 04/13/17 05:00 Urine Urobilinogen 0.2 E.U./dL (0.2 - 1.0) 04/13/17 05:00 Ur Leukocyte Esterase NEGATIVE (NEGATIVE) 04/13/17 05:00 Urine RBC 2-5 /hpf (0-5) 04/13/17 05:00 Urine WBC 0-2 /hpf (0-5) 04/13/17 05:00 Ur Epithelial Cells FEW /lpf (FEW) 04/13/17 05:00 Urine Bacteria FEW /hpf (NONE SEEN) 04/13/17 05:00 Urine Mucus FEW /lpf (FEW) 04/13/17 05:00 - Physical Exam Vitals and I&O: Vital Signs Temp 98.6 F 04/24/17 06:35 Pulse 74 04/24/17 13:25 Resp 20 04/24/17 06:35 BP 129/76 04/24/17 13:25 Pulse Ox 96 04/24/17 06:35 Intake & Output 04/23/17 04/24/17 04/24/17 18:59 06:59 18:59 Intake Total 1200 120 Balance 1200 120 Intake: Oral 1200 120 Other: # Voids 3 3 # Bowel Movements 1 Active Medications: Current Medications Acetaminophen (Tylenol) 650 mg PO Q4HR PRN PRN Reason: Mild Pain / Temp above 100 Stop: 06/12/17 08:29 Acetaminophen (Tylenol) 325 mg PO Q6HR PRN PRN Reason: Pain or Fever >101 Stop: 06/12/17 10:59 Al Hydrox/Mg Hydrox/Simethicone (Maalox) 30 ml PO Q4HR PRN PRN Reason: GI DISTRESS Stop: 06/12/17 08:29 Fluoxetine HCl (Prozac) 10 mg PO DAILY [facility] PRN Reason: Protocol Stop: 06/21/17 08:59 Last Admin: 04/24/17 13:24 Dose: Not Given Haloperidol (Haldol) 1 mg PO BID [facility] PRN Reason: Protocol Stop: 06/16/17 16:59 Last Admin: 04/24/17 13:24 Dose: Not Given Lorazepam (Ativan) 0.5 mg PO Q4HR PRN; Protocol PRN Reason: Agitation Stop: 05/13/17 08:29 Magnesium Hydroxide (Milk Of Magnesia) 30 ml PO HS PRN PRN Reason: Constipation Memantine (Namenda) 10 mg PO BID [facility] Stop: 06/12/17 16:59 Last Admin: 04/24/17 13:24 Dose: Not Given Metoprolol Succinate (Toprol Xl) 50 mg PO DAILY [facility] Stop: 06/13/17 08:59 Last Admin: 04/24/17 13:25 Dose: Not Given Multivitamins/Vitamin C (Theragran) 1 tab PO DAILY [facility] Stop: 06/12/17 08:59 Last Admin: 04/24/17 13:25 Dose: Not Given Multivitamins/Vitamin C (Theragran) 1 tab PO DAILY [facility] Stop: 06/13/17 08:59 Last Admin: 04/24/17 13:25 Dose: Not Given Zolpidem Tartrate (Ambien) 5 mg PO HS PRN PRN Reason: Insomnia Stop: 06/12/17 08:29 General: alert HEENT: NC/AT, PERRLA Neck: Supple Lungs: CTAB Cardiovascular: RRR, Normal S1, Normal S2, without murmur Abdomen: soft, non-tender, non-distended, positive bowel sound Extremities: excoriation Neurological: alert Internal Medicine Assmt/Plan - Assessment Assessment: depression si htn dementia - Plan Plan: SAFETY PRECAUTIONS MONITOR BP CONTINUE CURRENT PLAN OF CARE Nutritional Asmnt/Malnutr-PDOC - Dietary Evaluation Malnutrition Findings (Please click <Entered> for more info): Nutritional Asmnt/Malnutrition Start: 04/18/17 13: 45 Text: Status: Complete Freq: Document 04/18/17 13:45 ELISE (Rec: 04/18/17 13:50 LCKOJO [email or web address]) Nutritional Asmnt/Malnutrition Patient General Information Nutritional Screening Moderate Risk Diagnosis Agitation Pertinent Medical Hx/Surgical Hx depression, dementia, HTN Subjective Information Per notes, PO intake 100% of all meals since admission. Current Diet Order/ Nutrition Support SIMRAN Pertinent Medications theragran Pertinent Labs / Alb 3.6 Nutritional Hx/Data Height 5 ft 8 in Height (Calculated Centimeters) 172.7 Current Weight (lbs) 175 lb Weight (Calculated Kilograms) 79.4 Weight (Calculated Grams) 45291.7 [place] Body Weight 140 % [place] Body Weight 125 Body Mass Index (BMI) 26.6 Weight Status Overweight GI Symptoms GI Symptoms None Last BM 1/5 Difficult in: None Cultural/Ethnic/[employer] Belief shellfish Usual diet at home not able to obtain Skin Integrity/Comment: dryness Current %PO Good (75-100%) Estimated Nutritional Goals BEE in Kcals: Using Current wt Calories/Kcals/Kg 25-30 Kcals Calculated 2591-1622 Protein: Using Current wt Protein g/k.8-1 Protein Calculated 64-80 Fluid: ml 1039-6054 Nutritional Problem No current Nutrition Prob Problem N/A Intervention/Recommendation Comments 1. Continue with current diet as ordered. 2. Monitor PO intake, wt, labs and skin integrity 3. F/U as low risk in 7 days, 04/25 Expected Outcomes/Goals Expected Outcomes/Goals 1. PO intake to meet at least 75% of nutritional needs. 2. Wt stability, skin to remain intact, labs to approach WNL.
--- NOTE | 2017-04-24 19:56 | Progress Notes ---
DATE: 04/24/2017 SUBJECTIVE: Staff was spoken to. The patient is interviewed. Mood is noted to be irritable. Affect is constricted. The patient is isolative and withdrawn. Coping skills are noted to be very poor. The patient continues to be very paranoid and is responding to internal stimuli, but the patient is reluctant to comply with the medication. At the same time, the patient's behavior is not so much out of control to the point where I need to give the medication IM. ASSESSMENT: The patient is still paranoid. PLAN: To continue the patient with the supportive therapy and followup. JOB# [id number]
--- NOTE | 2017-04-25 10:41 | Progress Notes ---
DATE: 04/25/2017 Staff was spoken to. The patient is interviewed. Mood is noted to be irritable. Affect is constricted. Coping skills are noted to be still poor. The patient has been having difficult time to cope with the stress, still refusing to comply with the medication stating that there is no need. Continues to be very paranoid. We are trying to convince the patient to take the medication by mouth, so that we can see whether she is going to be having any side effects. Otherwise, the patient is given a dose of Haldol Decanoate and the correctional case records supervisor was informed of the pending disposition of this patient. JOB# [id number]
[2017-04-25] MEDS: FLUOXETINE HCL 20 MG/5 ML PO SCH (13:35)
[2017-04-25] MEDS: Multivitamin Tab PO SCH ×2 (13:36→13:37)
--- NOTE | 2017-04-25 14:58 | Internal Medicine Prog Note ---
Internal Medicine Subjective - Subjective Patient seen and examined:: with staff, chart reviewed Patient is:: awake, verbal, talking Per staff patient has:: no adverse event, no episodes of fall, tolerating meds Internal Medicine Objective - Results Result Diagrams: 04/13/17 04:55 04/13/17 04:55 Recent Labs: Laboratory Last Values WBC 4.6 Th/cmm (4.8-10.8) L D 04/13/17 04:55 RBC 4.72 Mil/cmm (3.80-5.20) 04/13/17 04:55 Hgb 12.6 gm/dL (12-16) 04/13/17 04:55 Hct 38.4 % (41.0-60) L 04/13/17 04:55 MCV 81.5 fl (81-100) 04/13/17 04:55 MCH 26.7 pg (27.0-31.0) L 04/13/17 04:55 MCHC Differential 32.8 pg (28.0-36.0) 04/13/17 04:55 RDW 14.2 % (11.5-20.0) 04/13/17 04:55 Plt Count 179 Th/cmm (150-400) D 04/13/17 04:55 MPV 8.4 fl 04/13/17 04:55 Neutrophils % 56.2 % (40.0-80.0) 04/13/17 04:55 Lymphocytes % 33.4 % (20.0-50.0) 04/13/17 04:55 Monocytes % 8.2 % (2.0-10.0) 04/13/17 04:55 Eosinophils % 1.0 % (0.0-5.0) 04/13/17 04:55 Basophils % 1.2 % (0.0-2.0) 04/13/17 04:55 Sodium 137 mEq/L (136-145) 04/13/17 04:55 Potassium 3.7 mEq/L (3.5-5.1) 04/13/17 04:55 Chloride 107 mEq/L (98-107) 04/13/17 04:55 Carbon Dioxide 27.3 mEq/L (21.0-31.0) 04/13/17 04:55 Anion Gap 6.4 (7.0-16.0) L 04/13/17 04:55 BUN 15 mg/dL (7-25) 04/13/17 04:55 Creatinine 0.7 mg/dL (0.6-1.2) 04/13/17 04:55 Est GFR ( Amer) TNP 04/13/17 04:55 Est GFR (Non-Af Amer) TNP 04/13/17 04:55 BUN/Creatinine Ratio 21.4 04/13/17 04:55 Glucose 95 mg/dL (70-105) 04/13/17 04:55 Calcium 9.3 mg/dL (8.6-10.3) 04/13/17 04:55 Total Bilirubin 0.5 mg/dL (0.3-1.0) 04/13/17 04:55 AST 16 U/L (13-39) 04/13/17 04:55 ALT 20 U/L (7-52) 04/13/17 04:55 Alkaline Phosphatase 80 U/L (34-104) 04/13/17 04:55 Total Protein 6.3 gm/dL (6.0-8.3) 04/13/17 04:55 Albumin 3.6 gm/dL (3.7-5.3) L 04/13/17 04:55 Globulin 2.7 gm/dL 04/13/17 04:55 Albumin/Globulin Ratio 1.3 (1.0-1.8) 04/13/17 04:55 TSH 3.90 uIU/ml (0.34-5.60) 04/13/17 04:55 Urine Source MIDSTREAM 04/13/17 05:00 Urine Color YELLOW 04/13/17 05:00 Urine Clarity CLEAR (CLEAR) 04/13/17 05:00 Urine pH 7.5 (4.6 - 8.0) 04/13/17 05:00 Ur Specific [place] 1.015 (1.005-1.030) 04/13/17 05:00 Urine Protein NEGATIVE mg/dL (NEGATIVE) 04/13/17 05:00 Urine Glucose (UA) NEGATIVE mg/dL (NEGATIVE) 04/13/17 05:00 Urine Ketones NEGATIVE mg/dL (NEGATIVE) 04/13/17 05:00 Urine Blood NEGATIVE (NEGATIVE) 04/13/17 05:00 Urine Nitrate NEGATIVE (NEGATIVE) 04/13/17 05:00 Urine Bilirubin NEGATIVE (NEGATIVE) 04/13/17 05:00 Urine Urobilinogen 0.2 E.U./dL (0.2 - 1.0) 04/13/17 05:00 Ur Leukocyte Esterase NEGATIVE (NEGATIVE) 04/13/17 05:00 Urine RBC 2-5 /hpf (0-5) 04/13/17 05:00 Urine WBC 0-2 /hpf (0-5) 04/13/17 05:00 Ur Epithelial Cells FEW /lpf (FEW) 04/13/17 05:00 Urine Bacteria FEW /hpf (NONE SEEN) 04/13/17 05:00 Urine Mucus FEW /lpf (FEW) 04/13/17 05:00 - Physical Exam Vitals and I&O: Vital Signs Temp 97.6 F 04/25/17 05:52 Pulse 84 04/25/17 13:36 Resp 18 04/25/17 05:52 BP 116/77 04/25/17 13:36 Pulse Ox 97 04/25/17 05:52 Intake & Output 04/24/17 04/25/17 04/25/17 18:59 06:59 18:59 Intake Total 800 Balance 800 Intake: Oral 800 Other: # Voids 3 3 # Bowel Movements 1 0 Active Medications: Current Medications Acetaminophen (Tylenol) 650 mg PO Q4HR PRN PRN Reason: Mild Pain / Temp above 100 Stop: 06/12/17 08:29 Acetaminophen (Tylenol) 325 mg PO Q6HR PRN PRN Reason: Pain or Fever >101 Stop: 06/12/17 10:59 Al Hydrox/Mg Hydrox/Simethicone (Maalox) 30 ml PO Q4HR PRN PRN Reason: GI DISTRESS Stop: 06/12/17 08:29 Fluoxetine HCl (Prozac) 10 mg PO DAILY [facility] PRN Reason: Protocol Stop: 06/21/17 08:59 Last Admin: 04/25/17 13:35 Dose: Not Given Haloperidol (Haldol) 1 mg PO BID [facility] PRN Reason: Protocol Stop: 06/16/17 16:59 Last Admin: 04/25/17 13:35 Dose: Not Given Lorazepam (Ativan) 0.5 mg PO Q4HR PRN; Protocol PRN Reason: Agitation Stop: 05/13/17 08:29 Magnesium Hydroxide (Milk Of Magnesia) 30 ml PO HS PRN PRN Reason: Constipation Memantine (Namenda) 10 mg PO BID [facility] Stop: 06/12/17 16:59 Last Admin: 04/25/17 13:35 Dose: Not Given Metoprolol Succinate (Toprol Xl) 50 mg PO DAILY [facility] Stop: 06/13/17 08:59 Last Admin: 04/25/17 13:36 Dose: Not Given Multivitamins/Vitamin C (Theragran) 1 tab PO DAILY [facility] Stop: 06/13/17 08:59 Last Admin: 04/25/17 13:37 Dose: Not Given Zolpidem Tartrate (Ambien) 5 mg PO HS PRN PRN Reason: Insomnia Stop: 06/12/17 08:29 General: alert HEENT: NC/AT, PERRLA Neck: Supple Lungs: CTAB Cardiovascular: RRR, Normal S1, Normal S2, without murmur Abdomen: soft, non-tender, non-distended, positive bowel sound Extremities: excoriation Neurological: alert Internal Medicine Assmt/Plan - Assessment Assessment: - Assessment Assessment: depression si htn dementia - Plan Plan: SAFETY PRECAUTIONS MONITOR BP CONTINUE CURRENT PLAN OF CARE - Plan Plan: fall precaution see orders Nutritional Asmnt/Malnutr-PDOC - Dietary Evaluation Malnutrition Findings (Please click <Entered> for more info): Nutritional Asmnt/Malnutrition Start: 04/18/17 13: 45 Text: Status: Complete Freq: Document 04/18/17 13:45 [email or web address] (Rec: 04/18/17 13:50 NANNETTE [email or web address]) Nutritional Asmnt/Malnutrition Patient General Information Nutritional Screening Moderate Risk Diagnosis Agitation Pertinent Medical Hx/Surgical Hx depression, dementia, HTN Subjective Information Per notes, PO intake 100% of all meals since admission. Current Diet Order/ Nutrition Support SIMRAN Pertinent Medications theragran Pertinent Labs / Alb 3.6 Nutritional Hx/Data Height 1.73 m Height (Calculated Centimeters) 172.7 Current Weight (lbs) 79.379 kg Weight (Calculated Kilograms) 79.4 Weight (Calculated Grams) 78908.7 [place] Body Weight 140 % [place] Body Weight 125 Body Mass Index (BMI) 26.6 Weight Status Overweight GI Symptoms GI Symptoms None Last BM 1/5 Difficult in: None Cultural/Ethnic/Christianity Belief shellfish Usual diet at home not able to obtain Skin Integrity/Comment: dryness Current %PO Good (75-100%) Estimated Nutritional Goals BEE in Kcals: Using Current wt Calories/Kcals/Kg 25-30 Kcals Calculated 2861-3107 Protein: Using Current wt Protein g/k.8-1 Protein Calculated 64-80 Fluid: ml 2637-3255 Nutritional Problem No current Nutrition Prob Problem N/A Intervention/Recommendation Comments 1. Continue with current diet as ordered. 2. Monitor PO intake, wt, labs and skin integrity 3. F/U as low risk in 7 days, 04/25 Expected Outcomes/Goals Expected Outcomes/Goals 1. PO intake to meet at least 75% of nutritional needs. 2. Wt stability, skin to remain intact, labs to approach WNL.
[2017-04-26] MEDS: FLUOXETINE HCL 20 MG/5 ML PO SCH (09:41)
[2017-04-26] MEDS: Multivitamin Tab PO SCH (09:42)
--- NOTE | 2017-04-26 16:18 | Progress Notes ---
DATE: 04/26/2017 SUBJECTIVE: Staff was spoken to. The patient is interviewed. Mood is noted to be depressed. Affect is constricted. The patient's insight and judgment at this time are noted to be impaired. Impulse control is noted to be poor. The patient has been isolative and withdrawn. The patient has been having difficult time to accept the medication and we are trying to convince her to comply with the medication. The patient is currently on Prozac 10 mg, I am planning to increase this medication to 20 mg and encouraged the patient to comply with the treatment. No side effects to the medications are noted at this time. ASSESSMENT: The patient is still depressed and psychotic. PLAN: To continue the patient with the supportive therapy and followup. [facility]# [id number]
--- NOTE | 2017-04-26 17:37 | Internal Medicine Prog Note ---
Internal Medicine Subjective - Subjective Service Date: 04/26/17 Patient is:: awake, verbal, talking Per staff patient has:: no adverse event, no episodes of fall, tolerating meds Internal Medicine Objective - Results Result Diagrams: 04/13/17 04:55 04/13/17 04:55 Recent Labs: Laboratory Last Values WBC 4.6 Th/cmm (4.8-10.8) L D 04/13/17 04:55 RBC 4.72 Mil/cmm (3.80-5.20) 04/13/17 04:55 Hgb 12.6 gm/dL (12-16) 04/13/17 04:55 Hct 38.4 % (41.0-60) L 04/13/17 04:55 MCV 81.5 fl (81-100) 04/13/17 04:55 MCH 26.7 pg (27.0-31.0) L 04/13/17 04:55 MCHC Differential 32.8 pg (28.0-36.0) 04/13/17 04:55 RDW 14.2 % (11.5-20.0) 04/13/17 04:55 Plt Count 179 Th/cmm (150-400) D 04/13/17 04:55 MPV 8.4 fl 04/13/17 04:55 Neutrophils % 56.2 % (40.0-80.0) 04/13/17 04:55 Lymphocytes % 33.4 % (20.0-50.0) 04/13/17 04:55 Monocytes % 8.2 % (2.0-10.0) 04/13/17 04:55 Eosinophils % 1.0 % (0.0-5.0) 04/13/17 04:55 Basophils % 1.2 % (0.0-2.0) 04/13/17 04:55 Sodium 137 mEq/L (136-145) 04/13/17 04:55 Potassium 3.7 mEq/L (3.5-5.1) 04/13/17 04:55 Chloride 107 mEq/L (98-107) 04/13/17 04:55 Carbon Dioxide 27.3 mEq/L (21.0-31.0) 04/13/17 04:55 Anion Gap 6.4 (7.0-16.0) L 04/13/17 04:55 BUN 15 mg/dL (7-25) 04/13/17 04:55 Creatinine 0.7 mg/dL (0.6-1.2) 04/13/17 04:55 Est GFR ( Amer) TNP 04/13/17 04:55 Est GFR (Non-Af Amer) TNP 04/13/17 04:55 BUN/Creatinine Ratio 21.4 04/13/17 04:55 Glucose 95 mg/dL (70-105) 04/13/17 04:55 Calcium 9.3 mg/dL (8.6-10.3) 04/13/17 04:55 Total Bilirubin 0.5 mg/dL (0.3-1.0) 04/13/17 04:55 AST 16 U/L (13-39) 04/13/17 04:55 ALT 20 U/L (7-52) 04/13/17 04:55 Alkaline Phosphatase 80 U/L (34-104) 04/13/17 04:55 Total Protein 6.3 gm/dL (6.0-8.3) 04/13/17 04:55 Albumin 3.6 gm/dL (3.7-5.3) L 04/13/17 04:55 Globulin 2.7 gm/dL 04/13/17 04:55 Albumin/Globulin Ratio 1.3 (1.0-1.8) 04/13/17 04:55 TSH 3.90 uIU/ml (0.34-5.60) 04/13/17 04:55 Urine Source MIDSTREAM 04/13/17 05:00 Urine Color YELLOW 04/13/17 05:00 Urine Clarity CLEAR (CLEAR) 04/13/17 05:00 Urine pH 7.5 (4.6 - 8.0) 04/13/17 05:00 Ur Specific [place] 1.015 (1.005-1.030) 04/13/17 05:00 Urine Protein NEGATIVE mg/dL (NEGATIVE) 04/13/17 05:00 Urine Glucose (UA) NEGATIVE mg/dL (NEGATIVE) 04/13/17 05:00 Urine Ketones NEGATIVE mg/dL (NEGATIVE) 04/13/17 05:00 Urine Blood NEGATIVE (NEGATIVE) 04/13/17 05:00 Urine Nitrate NEGATIVE (NEGATIVE) 04/13/17 05:00 Urine Bilirubin NEGATIVE (NEGATIVE) 04/13/17 05:00 Urine Urobilinogen 0.2 E.U./dL (0.2 - 1.0) 04/13/17 05:00 Ur Leukocyte Esterase NEGATIVE (NEGATIVE) 04/13/17 05:00 Urine RBC 2-5 /hpf (0-5) 04/13/17 05:00 Urine WBC 0-2 /hpf (0-5) 04/13/17 05:00 Ur Epithelial Cells FEW /lpf (FEW) 04/13/17 05:00 Urine Bacteria FEW /hpf (NONE SEEN) 04/13/17 05:00 Urine Mucus FEW /lpf (FEW) 04/13/17 05:00 - Physical Exam Vitals and I&O: Vital Signs Temp 97.3 F 04/26/17 15:35 Pulse 90 04/26/17 15:35 Resp 20 04/26/17 15:35 BP 120/76 04/26/17 15:35 Pulse Ox 96 04/26/17 15:35 Intake & Output 04/25/17 04/26/17 04/26/17 18:59 06:59 18:59 Intake Total 1200 300 Balance 1200 300 Intake: Oral 1200 300 Other: # Voids 3 1 # Bowel Movements 1 0 Active Medications: Current Medications Acetaminophen (Tylenol) 650 mg PO Q4HR PRN PRN Reason: Mild Pain / Temp above 100 Stop: 06/12/17 08:29 Acetaminophen (Tylenol) 325 mg PO Q6HR PRN PRN Reason: Pain or Fever >101 Stop: 06/12/17 10:59 Al Hydrox/Mg Hydrox/Simethicone (Maalox) 30 ml PO Q4HR PRN PRN Reason: GI DISTRESS Stop: 06/12/17 08:29 Fluoxetine HCl (Prozac) 20 mg PO DAILY [facility] PRN Reason: Protocol Stop: 06/21/17 08:59 Haloperidol (Haldol) 1 mg PO BID [facility] PRN Reason: Protocol Stop: 06/16/17 16:59 Last Admin: 04/26/17 16:21 Dose: Not Given Lorazepam (Ativan) 0.5 mg PO Q4HR PRN; Protocol PRN Reason: Agitation Stop: 05/13/17 08:29 Magnesium Hydroxide (Milk Of Magnesia) 30 ml PO HS PRN PRN Reason: Constipation Memantine (Namenda) 10 mg PO BID [facility] Stop: 06/12/17 16:59 Last Admin: 04/26/17 16:21 Dose: Not Given Metoprolol Succinate (Toprol Xl) 50 mg PO DAILY [facility] Stop: 06/13/17 08:59 Last Admin: 04/26/17 09:41 Dose: Not Given Multivitamins/Vitamin C (Theragran) 1 tab PO DAILY [facility] Stop: 06/13/17 08:59 Last Admin: 04/26/17 09:42 Dose: Not Given Zolpidem Tartrate (Ambien) 5 mg PO HS PRN PRN Reason: Insomnia Stop: 06/12/17 08:29 General: alert HEENT: NC/AT, PERRLA Neck: Supple Lungs: CTAB Cardiovascular: RRR, Normal S1, Normal S2, without murmur Abdomen: soft, non-tender, non-distended, positive bowel sound Extremities: excoriation Neurological: alert Internal Medicine Assmt/Plan - Assessment Assessment: depression si htn dementia - Plan Plan: SAFETY PRECAUTIONS MONITOR BP CONTINUE CURRENT PLAN OF CARE Nutritional Asmnt/Malnutr-PDOC - Dietary Evaluation Malnutrition Findings (Please click <Entered> for more info): Nutritional Asmnt/Malnutrition Start: 04/18/17 13: 45 Text: Status: Complete Freq: Document 04/18/17 13:45 NANNETTE (Rec: 04/18/17 13:50 HEN [email or web address]) Nutritional Asmnt/Malnutrition Patient General Information Nutritional Screening Moderate Risk Diagnosis Agitation Pertinent Medical Hx/Surgical Hx depression, dementia, HTN Subjective Information Per notes, PO intake 100% of all meals since admission. Current Diet Order/ Nutrition Support SIMRAN Pertinent Medications theragran Pertinent Labs 1/3 Alb 3.6 Nutritional Hx/Data Height 5 ft 8 in Height (Calculated Centimeters) 172.7 Current Weight (lbs) 175 lb Weight (Calculated Kilograms) 79.4 Weight (Calculated Grams) 31932.7 [place] Body Weight 140 % [place] Body Weight 125 Body Mass Index (BMI) 26.6 Weight Status Overweight GI Symptoms GI Symptoms None Last BM 1/5 Difficult in: None Cultural/Ethnic/Christianity Belief shellfish Usual diet at home not able to obtain Skin Integrity/Comment: dryness Current %PO Good (75-100%) Estimated Nutritional Goals BEE in Kcals: Using Current wt Calories/Kcals/Kg 25-30 Kcals Calculated 3033-9479 Protein: Using Current wt Protein g/k.8-1 Protein Calculated 64-80 Fluid: ml 7513-8468 Nutritional Problem No current Nutrition Prob Problem N/A Intervention/Recommendation Comments 1. Continue with current diet as ordered. 2. Monitor PO intake, wt, labs and skin integrity 3. F/U as low risk in 7 days, 04/25 Expected Outcomes/Goals Expected Outcomes/Goals 1. PO intake to meet at least 75% of nutritional needs. 2. Wt stability, skin to remain intact, labs to approach WNL.
[2017-04-27] MEDS: Multivitamin Tab PO SCH (09:41)
[2017-04-27] MEDS: FLUOXETINE HCL 20 MG/5 ML PO SCH (09:41)
--- NOTE | 2017-04-27 13:46 | Internal Medicine Prog Note ---
Internal Medicine Subjective - Subjective Service Date: 04/27/17 Patient is:: awake, verbal, talking Per staff patient has:: no adverse event, no episodes of fall, tolerating meds Internal Medicine Objective - Results Result Diagrams: 04/13/17 04:55 04/13/17 04:55 Recent Labs: Laboratory Last Values WBC 4.6 Th/cmm (4.8-10.8) L D 04/13/17 04:55 RBC 4.72 Mil/cmm (3.80-5.20) 04/13/17 04:55 Hgb 12.6 gm/dL (12-16) 04/13/17 04:55 Hct 38.4 % (41.0-60) L 04/13/17 04:55 MCV 81.5 fl (81-100) 04/13/17 04:55 MCH 26.7 pg (27.0-31.0) L 04/13/17 04:55 MCHC Differential 32.8 pg (28.0-36.0) 04/13/17 04:55 RDW 14.2 % (11.5-20.0) 04/13/17 04:55 Plt Count 179 Th/cmm (150-400) D 04/13/17 04:55 MPV 8.4 fl 04/13/17 04:55 Neutrophils % 56.2 % (40.0-80.0) 04/13/17 04:55 Lymphocytes % 33.4 % (20.0-50.0) 04/13/17 04:55 Monocytes % 8.2 % (2.0-10.0) 04/13/17 04:55 Eosinophils % 1.0 % (0.0-5.0) 04/13/17 04:55 Basophils % 1.2 % (0.0-2.0) 04/13/17 04:55 Sodium 137 mEq/L (136-145) 04/13/17 04:55 Potassium 3.7 mEq/L (3.5-5.1) 04/13/17 04:55 Chloride 107 mEq/L (98-107) 04/13/17 04:55 Carbon Dioxide 27.3 mEq/L (21.0-31.0) 04/13/17 04:55 Anion Gap 6.4 (7.0-16.0) L 04/13/17 04:55 BUN 15 mg/dL (7-25) 04/13/17 04:55 Creatinine 0.7 mg/dL (0.6-1.2) 04/13/17 04:55 Est GFR ( Amer) TNP 04/13/17 04:55 Est GFR (Non-Af Amer) TNP 04/13/17 04:55 BUN/Creatinine Ratio 21.4 04/13/17 04:55 Glucose 95 mg/dL (70-105) 04/13/17 04:55 Calcium 9.3 mg/dL (8.6-10.3) 04/13/17 04:55 Total Bilirubin 0.5 mg/dL (0.3-1.0) 04/13/17 04:55 AST 16 U/L (13-39) 04/13/17 04:55 ALT 20 U/L (7-52) 04/13/17 04:55 Alkaline Phosphatase 80 U/L (34-104) 04/13/17 04:55 Total Protein 6.3 gm/dL (6.0-8.3) 04/13/17 04:55 Albumin 3.6 gm/dL (3.7-5.3) L 04/13/17 04:55 Globulin 2.7 gm/dL 04/13/17 04:55 Albumin/Globulin Ratio 1.3 (1.0-1.8) 04/13/17 04:55 TSH 3.90 uIU/ml (0.34-5.60) 04/13/17 04:55 Urine Source MIDSTREAM 04/13/17 05:00 Urine Color YELLOW 04/13/17 05:00 Urine Clarity CLEAR (CLEAR) 04/13/17 05:00 Urine pH 7.5 (4.6 - 8.0) 04/13/17 05:00 Ur Specific [place] 1.015 (1.005-1.030) 04/13/17 05:00 Urine Protein NEGATIVE mg/dL (NEGATIVE) 04/13/17 05:00 Urine Glucose (UA) NEGATIVE mg/dL (NEGATIVE) 04/13/17 05:00 Urine Ketones NEGATIVE mg/dL (NEGATIVE) 04/13/17 05:00 Urine Blood NEGATIVE (NEGATIVE) 04/13/17 05:00 Urine Nitrate NEGATIVE (NEGATIVE) 04/13/17 05:00 Urine Bilirubin NEGATIVE (NEGATIVE) 04/13/17 05:00 Urine Urobilinogen 0.2 E.U./dL (0.2 - 1.0) 04/13/17 05:00 Ur Leukocyte Esterase NEGATIVE (NEGATIVE) 04/13/17 05:00 Urine RBC 2-5 /hpf (0-5) 04/13/17 05:00 Urine WBC 0-2 /hpf (0-5) 04/13/17 05:00 Ur Epithelial Cells FEW /lpf (FEW) 04/13/17 05:00 Urine Bacteria FEW /hpf (NONE SEEN) 04/13/17 05:00 Urine Mucus FEW /lpf (FEW) 04/13/17 05:00 - Physical Exam Vitals and I&O: Vital Signs Temp 98.8 F 04/27/17 05:49 Pulse 85 04/27/17 08:00 Resp 19 04/27/17 05:49 BP 126/76 04/27/17 05:49 Pulse Ox 98 04/27/17 05:49 Intake & Output 04/26/17 04/27/17 04/27/17 18:59 06:59 18:59 Intake Total 900 300 Balance 900 300 Intake: Oral 900 300 Other: # Voids 4 1 # Bowel Movements 1 0 Active Medications: Current Medications Acetaminophen (Tylenol) 650 mg PO Q4HR PRN PRN Reason: Mild Pain / Temp above 100 Stop: 06/12/17 08:29 Acetaminophen (Tylenol) 325 mg PO Q6HR PRN PRN Reason: Pain or Fever >101 Stop: 06/12/17 10:59 Al Hydrox/Mg Hydrox/Simethicone (Maalox) 30 ml PO Q4HR PRN PRN Reason: GI DISTRESS Stop: 06/12/17 08:29 Fluoxetine HCl (Prozac) 20 mg PO DAILY [facility] PRN Reason: Protocol Stop: 06/21/17 08:59 Last Admin: 04/27/17 09:41 Dose: Not Given Haloperidol (Haldol) 1 mg PO BID [facility] PRN Reason: Protocol Stop: 06/16/17 16:59 Last Admin: 04/27/17 09:41 Dose: Not Given Lorazepam (Ativan) 0.5 mg PO Q4HR PRN; Protocol PRN Reason: Agitation Stop: 05/13/17 08:29 Magnesium Hydroxide (Milk Of Magnesia) 30 ml PO HS PRN PRN Reason: Constipation Memantine (Namenda) 10 mg PO BID [facility] Stop: 06/12/17 16:59 Last Admin: 04/27/17 09:41 Dose: Not Given Metoprolol Succinate (Toprol Xl) 50 mg PO DAILY [facility] Stop: 06/13/17 08:59 Last Admin: 04/27/17 09:41 Dose: Not Given Multivitamins/Vitamin C (Theragran) 1 tab PO DAILY [facility] Stop: 06/13/17 08:59 Last Admin: 04/27/17 09:41 Dose: Not Given Zolpidem Tartrate (Ambien) 5 mg PO HS PRN PRN Reason: Insomnia Stop: 06/12/17 08:29 General: alert HEENT: NC/AT, PERRLA Neck: Supple Lungs: CTAB Cardiovascular: RRR, Normal S1, Normal S2, without murmur Abdomen: soft, non-tender, non-distended, positive bowel sound Extremities: excoriation Neurological: alert Internal Medicine Assmt/Plan - Assessment Assessment: depression si htn dementia - Plan Plan: SAFETY PRECAUTIONS MONITOR BP CONTINUE CURRENT PLAN OF CARE Nutritional Asmnt/Malnutr-PDOC - Dietary Evaluation Malnutrition Findings (Please click <Entered> for more info): Nutritional Asmnt/Malnutrition Start: 04/18/17 13: 45 Text: Status: Complete Freq: Document 04/18/17 13:45 LCHENG (Rec: 04/18/17 13:50 LCHENG [email or web address]) Nutritional Asmnt/Malnutrition Patient General Information Nutritional Screening Moderate Risk Diagnosis Agitation Pertinent Medical Hx/Surgical Hx depression, dementia, HTN Subjective Information Per notes, PO intake 100% of all meals since admission. Current Diet Order/ Nutrition Support SIMRAN Pertinent Medications theragran Pertinent Labs / Alb 3.6 Nutritional Hx/Data Height 5 ft 8 in Height (Calculated Centimeters) 172.7 Current Weight (lbs) 175 lb Weight (Calculated Kilograms) 79.4 Weight (Calculated Grams) 60618.7 [place] Body Weight 140 % [place] Body Weight 125 Body Mass Index (BMI) 26.6 Weight Status Overweight GI Symptoms GI Symptoms None Last BM 1/5 Difficult in: None Cultural/Ethnic/Holiness Belief shellfish Usual diet at home not able to obtain Skin Integrity/Comment: dryness Current %PO Good (75-100%) Estimated Nutritional Goals BEE in Kcals: Using Current wt Calories/Kcals/Kg 25-30 Kcals Calculated 6210-3469 Protein: Using Current wt Protein g/k.8-1 Protein Calculated 64-80 Fluid: ml 6706-7866 Nutritional Problem No current Nutrition Prob Problem N/A Intervention/Recommendation Comments 1. Continue with current diet as ordered. 2. Monitor PO intake, wt, labs and skin integrity 3. F/U as low risk in 7 days, 04/25 Expected Outcomes/Goals Expected Outcomes/Goals 1. PO intake to meet at least 75% of nutritional needs. 2. Wt stability, skin to remain intact, labs to approach WNL.
--- NOTE | 2017-04-27 23:24 | Progress Notes ---
DATE: 04/27/2017 Staff was spoken to. Patient is interviewed. Mood is irritable. Affect is constricted. The patient is still resistant to take the medication. The patient has been placed on Haldol and liquid Prozac and we have been trying to convince the patient to comply with the medications. So far, no major problems with the medications are noted, but however, the patient continues to be isolated and withdrawn and if patient is agreeable, the patient is going to be given a dose of Haldol prior to her being discharged. ASSESSMENT: The patient is still impulsive. PLAN: To continue the patient with the supportive therapy. I encouraged the patient to verbalize the concerns rather than to act out. JOB# [id number]
[2017-04-28] MEDS: FLUOXETINE HCL 20 MG/5 ML PO SCH (10:46)
[2017-04-28] MEDS: Multivitamin Tab PO SCH (10:47)
--- NOTE | 2017-04-28 13:30 | Internal Medicine Prog Note ---
Internal Medicine Subjective - Subjective Service Date: 04/28/17 Patient is:: awake, verbal, talking Per staff patient has:: no adverse event, no episodes of fall, tolerating meds Internal Medicine Objective - Results Result Diagrams: 04/13/17 04:55 04/13/17 04:55 Recent Labs: Laboratory Last Values WBC 4.6 Th/cmm (4.8-10.8) L D 04/13/17 04:55 RBC 4.72 Mil/cmm (3.80-5.20) 04/13/17 04:55 Hgb 12.6 gm/dL (12-16) 04/13/17 04:55 Hct 38.4 % (41.0-60) L 04/13/17 04:55 MCV 81.5 fl (81-100) 04/13/17 04:55 MCH 26.7 pg (27.0-31.0) L 04/13/17 04:55 MCHC Differential 32.8 pg (28.0-36.0) 04/13/17 04:55 RDW 14.2 % (11.5-20.0) 04/13/17 04:55 Plt Count 179 Th/cmm (150-400) D 04/13/17 04:55 MPV 8.4 fl 04/13/17 04:55 Neutrophils % 56.2 % (40.0-80.0) 04/13/17 04:55 Lymphocytes % 33.4 % (20.0-50.0) 04/13/17 04:55 Monocytes % 8.2 % (2.0-10.0) 04/13/17 04:55 Eosinophils % 1.0 % (0.0-5.0) 04/13/17 04:55 Basophils % 1.2 % (0.0-2.0) 04/13/17 04:55 Sodium 137 mEq/L (136-145) 04/13/17 04:55 Potassium 3.7 mEq/L (3.5-5.1) 04/13/17 04:55 Chloride 107 mEq/L (98-107) 04/13/17 04:55 Carbon Dioxide 27.3 mEq/L (21.0-31.0) 04/13/17 04:55 Anion Gap 6.4 (7.0-16.0) L 04/13/17 04:55 BUN 15 mg/dL (7-25) 04/13/17 04:55 Creatinine 0.7 mg/dL (0.6-1.2) 04/13/17 04:55 Est GFR ( Amer) TNP 04/13/17 04:55 Est GFR (Non-Af Amer) TNP 04/13/17 04:55 BUN/Creatinine Ratio 21.4 04/13/17 04:55 Glucose 95 mg/dL (70-105) 04/13/17 04:55 Calcium 9.3 mg/dL (8.6-10.3) 04/13/17 04:55 Total Bilirubin 0.5 mg/dL (0.3-1.0) 04/13/17 04:55 AST 16 U/L (13-39) 04/13/17 04:55 ALT 20 U/L (7-52) 04/13/17 04:55 Alkaline Phosphatase 80 U/L (34-104) 04/13/17 04:55 Total Protein 6.3 gm/dL (6.0-8.3) 04/13/17 04:55 Albumin 3.6 gm/dL (3.7-5.3) L 04/13/17 04:55 Globulin 2.7 gm/dL 04/13/17 04:55 Albumin/Globulin Ratio 1.3 (1.0-1.8) 04/13/17 04:55 TSH 3.90 uIU/ml (0.34-5.60) 04/13/17 04:55 Urine Source MIDSTREAM 04/13/17 05:00 Urine Color YELLOW 04/13/17 05:00 Urine Clarity CLEAR (CLEAR) 04/13/17 05:00 Urine pH 7.5 (4.6 - 8.0) 04/13/17 05:00 Ur Specific [place] 1.015 (1.005-1.030) 04/13/17 05:00 Urine Protein NEGATIVE mg/dL (NEGATIVE) 04/13/17 05:00 Urine Glucose (UA) NEGATIVE mg/dL (NEGATIVE) 04/13/17 05:00 Urine Ketones NEGATIVE mg/dL (NEGATIVE) 04/13/17 05:00 Urine Blood NEGATIVE (NEGATIVE) 04/13/17 05:00 Urine Nitrate NEGATIVE (NEGATIVE) 04/13/17 05:00 Urine Bilirubin NEGATIVE (NEGATIVE) 04/13/17 05:00 Urine Urobilinogen 0.2 E.U./dL (0.2 - 1.0) 04/13/17 05:00 Ur Leukocyte Esterase NEGATIVE (NEGATIVE) 04/13/17 05:00 Urine RBC 2-5 /hpf (0-5) 04/13/17 05:00 Urine WBC 0-2 /hpf (0-5) 04/13/17 05:00 Ur Epithelial Cells FEW /lpf (FEW) 04/13/17 05:00 Urine Bacteria FEW /hpf (NONE SEEN) 04/13/17 05:00 Urine Mucus FEW /lpf (FEW) 04/13/17 05:00 - Physical Exam Vitals and I&O: Vital Signs Temp 97.6 F 04/28/17 06:30 Pulse 80 04/28/17 06:30 Resp 19 04/28/17 06:30 BP 131/79 04/28/17 06:30 Pulse Ox 98 04/28/17 06:30 Intake & Output 04/27/17 04/28/17 04/28/17 18:59 06:59 18:59 Intake Total 1000 120 Balance 1000 120 Intake: Oral 1000 120 Other: # Voids 4 3 # Bowel Movements 1 Stool Characteristics Soft Soft Active Medications: Current Medications Acetaminophen (Tylenol) 650 mg PO Q4HR PRN PRN Reason: Mild Pain / Temp above 100 Stop: 06/12/17 08:29 Acetaminophen (Tylenol) 325 mg PO Q6HR PRN PRN Reason: Pain or Fever >101 Stop: 06/12/17 10:59 Al Hydrox/Mg Hydrox/Simethicone (Maalox) 30 ml PO Q4HR PRN PRN Reason: GI DISTRESS Stop: 06/12/17 08:29 Fluoxetine HCl (Prozac) 20 mg PO DAILY [facility] PRN Reason: Protocol Stop: 06/21/17 08:59 Last Admin: 04/28/17 10:46 Dose: Not Given Haloperidol (Haldol) 1 mg PO BID [facility] PRN Reason: Protocol Stop: 06/16/17 16:59 Last Admin: 04/28/17 10:46 Dose: Not Given Haloperidol Decanoate (Haldol Dec) 25 mg IM QMONTH [facility] PRN Reason: Protocol Stop: 06/27/17 08:44 Lorazepam (Ativan) 0.5 mg PO Q4HR PRN; Protocol PRN Reason: Agitation Stop: 05/13/17 08:29 Magnesium Hydroxide (Milk Of Magnesia) 30 ml PO HS PRN PRN Reason: Constipation Memantine (Namenda) 10 mg PO BID [facility] Stop: 06/12/17 16:59 Last Admin: 04/28/17 10:47 Dose: Not Given Metoprolol Succinate (Toprol Xl) 50 mg PO DAILY [facility] Stop: 06/13/17 08:59 Last Admin: 04/28/17 10:47 Dose: Not Given Multivitamins/Vitamin C (Theragran) 1 tab PO DAILY [facility] Stop: 06/13/17 08:59 Last Admin: 04/28/17 10:47 Dose: Not Given Zolpidem Tartrate (Ambien) 5 mg PO HS PRN PRN Reason: Insomnia Stop: 06/12/17 08:29 General: alert HEENT: NC/AT, PERRLA Neck: Supple Lungs: CTAB Cardiovascular: RRR, Normal S1, Normal S2, without murmur Abdomen: soft, non-tender, non-distended, positive bowel sound Extremities: excoriation Neurological: alert Internal Medicine Assmt/Plan - Assessment Assessment: depression si htn dementia - Plan Plan: SAFETY PRECAUTIONS MONITOR BP CONTINUE CURRENT PLAN OF CARE Nutritional Asmnt/Malnutr-PDOC - Dietary Evaluation Malnutrition Findings (Please click <Entered> for more info): Nutritional Asmnt/Malnutrition Start: 04/18/17 13: 45 Text: Status: Complete Freq: Document 04/18/17 13:45 LCHENG (Rec: 04/18/17 13:50 LCHENG [email or web address]) Nutritional Asmnt/Malnutrition Patient General Information Nutritional Screening Moderate Risk Diagnosis Agitation Pertinent Medical Hx/Surgical Hx depression, dementia, HTN Subjective Information Per notes, PO intake 100% of all meals since admission. Current Diet Order/ Nutrition Support SIMRAN Pertinent Medications theragran Pertinent Labs / Alb 3.6 Nutritional Hx/Data Height 5 ft 8 in Height (Calculated Centimeters) 172.7 Current Weight (lbs) 175 lb Weight (Calculated Kilograms) 79.4 Weight (Calculated Grams) 54857.7 [place] Body Weight 140 % [place] Body Weight 125 Body Mass Index (BMI) 26.6 Weight Status Overweight GI Symptoms GI Symptoms None Last BM 1/5 Difficult in: None Cultural/Ethnic/[employer] Belief shellfish Usual diet at home not able to obtain Skin Integrity/Comment: dryness Current %PO Good (75-100%) Estimated Nutritional Goals BEE in Kcals: Using Current wt Calories/Kcals/Kg 25-30 Kcals Calculated 5080-4402 Protein: Using Current wt Protein g/k.8-1 Protein Calculated 64-80 Fluid: ml 5798-5652 Nutritional Problem No current Nutrition Prob Problem N/A Intervention/Recommendation Comments 1. Continue with current diet as ordered. 2. Monitor PO intake, wt, labs and skin integrity 3. F/U as low risk in 7 days, 04/25 Expected Outcomes/Goals Expected Outcomes/Goals 1. PO intake to meet at least 75% of nutritional needs. 2. Wt stability, skin to remain intact, labs to approach WNL.
--- NOTE | 2017-04-28 14:46 | Progress Notes ---
DATE: 04/28/2017 PSYCHIATRIC PROGRESS NOTE SUBJECTIVE: Staff was spoken to. The patient is interviewed. Mood is noted to be irritable. Affect is constricted. The patient has been having difficult time to cope with the stress. The patient is able to tolerate the Haldol p.o. and hence it is decided to go with Haldol Decanoate to 25 mg IM today and because the patient's noncompliance. The patient is going to be given the medication today and patient is going to be encouraged to participate in the groups and verbalize the concerns rather than to act out. The patient still isolative, ____ also noted to be very poor. ASSESSMENT: The patient is still psychotic. PLAN: To continue the patient with supportive therapy and go with the Haldol Decanoate today and follow the patient with the supportive therapy. JOB# [id number]
[2017-04-29] MEDS: Multivitamin Tab PO SCH (09:35)
[2017-04-29] MEDS: FLUOXETINE HCL 20 MG/5 ML PO SCH (12:50)
--- NOTE | 2017-04-29 14:08 | Internal Medicine Prog Note ---
Internal Medicine Subjective - Subjective Service Date: 04/29/17 Patient is:: awake, verbal, talking Per staff patient has:: no adverse event, no episodes of fall, tolerating meds Internal Medicine Objective - Results Result Diagrams: 04/13/17 04:55 04/13/17 04:55 Recent Labs: Laboratory Last Values WBC 4.6 Th/cmm (4.8-10.8) L D 04/13/17 04:55 RBC 4.72 Mil/cmm (3.80-5.20) 04/13/17 04:55 Hgb 12.6 gm/dL (12-16) 04/13/17 04:55 Hct 38.4 % (41.0-60) L 04/13/17 04:55 MCV 81.5 fl (81-100) 04/13/17 04:55 MCH 26.7 pg (27.0-31.0) L 04/13/17 04:55 MCHC Differential 32.8 pg (28.0-36.0) 04/13/17 04:55 RDW 14.2 % (11.5-20.0) 04/13/17 04:55 Plt Count 179 Th/cmm (150-400) D 04/13/17 04:55 MPV 8.4 fl 04/13/17 04:55 Neutrophils % 56.2 % (40.0-80.0) 04/13/17 04:55 Lymphocytes % 33.4 % (20.0-50.0) 04/13/17 04:55 Monocytes % 8.2 % (2.0-10.0) 04/13/17 04:55 Eosinophils % 1.0 % (0.0-5.0) 04/13/17 04:55 Basophils % 1.2 % (0.0-2.0) 04/13/17 04:55 Sodium 137 mEq/L (136-145) 04/13/17 04:55 Potassium 3.7 mEq/L (3.5-5.1) 04/13/17 04:55 Chloride 107 mEq/L (98-107) 04/13/17 04:55 Carbon Dioxide 27.3 mEq/L (21.0-31.0) 04/13/17 04:55 Anion Gap 6.4 (7.0-16.0) L 04/13/17 04:55 BUN 15 mg/dL (7-25) 04/13/17 04:55 Creatinine 0.7 mg/dL (0.6-1.2) 04/13/17 04:55 Est GFR ( Amer) TNP 04/13/17 04:55 Est GFR (Non-Af Amer) TNP 04/13/17 04:55 BUN/Creatinine Ratio 21.4 04/13/17 04:55 Glucose 95 mg/dL (70-105) 04/13/17 04:55 Calcium 9.3 mg/dL (8.6-10.3) 04/13/17 04:55 Total Bilirubin 0.5 mg/dL (0.3-1.0) 04/13/17 04:55 AST 16 U/L (13-39) 04/13/17 04:55 ALT 20 U/L (7-52) 04/13/17 04:55 Alkaline Phosphatase 80 U/L (34-104) 04/13/17 04:55 Total Protein 6.3 gm/dL (6.0-8.3) 04/13/17 04:55 Albumin 3.6 gm/dL (3.7-5.3) L 04/13/17 04:55 Globulin 2.7 gm/dL 04/13/17 04:55 Albumin/Globulin Ratio 1.3 (1.0-1.8) 04/13/17 04:55 TSH 3.90 uIU/ml (0.34-5.60) 04/13/17 04:55 Urine Source MIDSTREAM 04/13/17 05:00 Urine Color YELLOW 04/13/17 05:00 Urine Clarity CLEAR (CLEAR) 04/13/17 05:00 Urine pH 7.5 (4.6 - 8.0) 04/13/17 05:00 Ur Specific Wolf 1.015 (1.005-1.030) 04/13/17 05:00 Urine Protein NEGATIVE mg/dL (NEGATIVE) 04/13/17 05:00 Urine Glucose (UA) NEGATIVE mg/dL (NEGATIVE) 04/13/17 05:00 Urine Ketones NEGATIVE mg/dL (NEGATIVE) 04/13/17 05:00 Urine Blood NEGATIVE (NEGATIVE) 04/13/17 05:00 Urine Nitrate NEGATIVE (NEGATIVE) 04/13/17 05:00 Urine Bilirubin NEGATIVE (NEGATIVE) 04/13/17 05:00 Urine Urobilinogen 0.2 E.U./dL (0.2 - 1.0) 04/13/17 05:00 Ur Leukocyte Esterase NEGATIVE (NEGATIVE) 04/13/17 05:00 Urine RBC 2-5 /hpf (0-5) 04/13/17 05:00 Urine WBC 0-2 /hpf (0-5) 04/13/17 05:00 Ur Epithelial Cells FEW /lpf (FEW) 04/13/17 05:00 Urine Bacteria FEW /hpf (NONE SEEN) 04/13/17 05:00 Urine Mucus FEW /lpf (FEW) 04/13/17 05:00 - Physical Exam Vitals and I&O: Vital Signs Temp 98.2 F 04/29/17 06:26 Pulse 86 04/29/17 09:35 Resp 20 04/29/17 06:26 BP 137/88 04/29/17 09:35 Pulse Ox 98 04/29/17 06:26 Intake & Output 04/28/17 04/29/17 04/29/17 18:59 06:59 18:59 Intake Total 1200 120 Balance 1200 120 Intake: Oral 1200 120 Other: # Voids 3 3 # Bowel Movements 1 Stool Characteristics Soft Soft Active Medications: Current Medications Acetaminophen (Tylenol) 650 mg PO Q4HR PRN PRN Reason: Mild Pain / Temp above 100 Stop: 06/12/17 08:29 Acetaminophen (Tylenol) 325 mg PO Q6HR PRN PRN Reason: Pain or Fever >101 Stop: 06/12/17 10:59 Al Hydrox/Mg Hydrox/Simethicone (Maalox) 30 ml PO Q4HR PRN PRN Reason: GI DISTRESS Stop: 06/12/17 08:29 Fluoxetine HCl (Prozac) 20 mg PO DAILY [facility] PRN Reason: Protocol Stop: 06/21/17 08:59 Last Admin: 04/29/17 12:50 Dose: Not Given Haloperidol (Haldol) 1 mg PO BID [facility] PRN Reason: Protocol Stop: 06/16/17 16:59 Last Admin: 04/29/17 12:50 Dose: 1 mg Haloperidol Decanoate (Haldol Dec) 25 mg IM QMONTH [facility] PRN Reason: Protocol Stop: 06/27/17 08:44 Last Admin: 04/28/17 17:34 Dose: 25 mg Lorazepam (Ativan) 0.5 mg PO Q4HR PRN; Protocol PRN Reason: Agitation Stop: 05/13/17 08:29 Magnesium Hydroxide (Milk Of Magnesia) 30 ml PO HS PRN PRN Reason: Constipation Memantine (Namenda) 10 mg PO BID [facility] Stop: 06/12/17 16:59 Last Admin: 04/29/17 09:35 Dose: Not Given Metoprolol Succinate (Toprol Xl) 50 mg PO DAILY [facility] Stop: 06/13/17 08:59 Last Admin: 04/29/17 09:35 Dose: Not Given Multivitamins/Vitamin C (Theragran) 1 tab PO DAILY [facility] Stop: 06/13/17 08:59 Last Admin: 04/29/17 09:35 Dose: Not Given Zolpidem Tartrate (Ambien) 5 mg PO HS PRN PRN Reason: Insomnia Stop: 06/12/17 08:29 General: alert HEENT: NC/AT, PERRLA Neck: Supple Lungs: CTAB Cardiovascular: RRR, Normal S1, Normal S2, without murmur Abdomen: soft, non-tender, non-distended, positive bowel sound Extremities: excoriation Neurological: alert Internal Medicine Assmt/Plan - Assessment Assessment: depression si htn dementia - Plan Plan: SAFETY PRECAUTIONS MONITOR BP CONTINUE CURRENT PLAN OF CARE Nutritional Asmnt/Malnutr-PDOC - Dietary Evaluation Malnutrition Findings (Please click <Entered> for more info): Nutritional Asmnt/Malnutrition Start: 04/18/17 13: 45 Text: Status: Complete Freq: Document 04/18/17 13:45 NANNETTE (Rec: 04/18/17 13:50 LCHEN [email or web address]) Nutritional Asmnt/Malnutrition Patient General Information Nutritional Screening Moderate Risk Diagnosis Agitation Pertinent Medical Hx/Surgical Hx depression, dementia, HTN Subjective Information Per notes, PO intake 100% of all meals since admission. Current Diet Order/ Nutrition Support SIMRAN Pertinent Medications theragran Pertinent Labs 1/ Alb 3.6 Nutritional Hx/Data Height 5 ft 8 in Height (Calculated Centimeters) 172.7 Current Weight (lbs) 175 lb Weight (Calculated Kilograms) 79.4 Weight (Calculated Grams) 46729.7 [place] Body Weight 140 % [place] Body Weight 125 Body Mass Index (BMI) 26.6 Weight Status Overweight GI Symptoms GI Symptoms None Last BM 1/5 Difficult in: None Cultural/Ethnic/Congregational Belief shellfish Usual diet at home not able to obtain Skin Integrity/Comment: dryness Current %PO Good (75-100%) Estimated Nutritional Goals BEE in Kcals: Using Current wt Calories/Kcals/Kg 25-30 Kcals Calculated 8729-6723 Protein: Using Current wt Protein g/k.8-1 Protein Calculated 64-80 Fluid: ml 9474-0539 Nutritional Problem No current Nutrition Prob Problem N/A Intervention/Recommendation Comments 1. Continue with current diet as ordered. 2. Monitor PO intake, wt, labs and skin integrity 3. F/U as low risk in 7 days, 04/25 Expected Outcomes/Goals Expected Outcomes/Goals 1. PO intake to meet at least 75% of nutritional needs. 2. Wt stability, skin to remain intact, labs to approach WNL.
--- NOTE | 2017-04-29 22:00 | Progress Notes ---
DATE: 04/29/2017 SUBJECTIVE: Staff was spoken to. The patient is interviewed. Mood is anxious. The patient's ____. Impulse control is noted to be fair. No side effects to the medications are noted. The patient has been able to verbalize the concerns in view of the noncompliance with the medication. The patient has been given the Haldol Decanoate yesterday. ASSESSMENT: The patient is stabilizing, not suicidal or homicidal. PLAN: To discharge the patient today for followup on outpatient basis. JOB# [id number]
--- NOTE | 2017-05-01 13:05 | Discharge Summary ---
DATE OF DISCHARGE: 04/29/2017 SUBJECTIVE: The patient is seen and report has been given by staff. The patient's mood continues to be mildly anxious. The patient's impulse control has improved somewhat. The patient has become compliant with the medication. The patient remains confused and states that she does not know where she is going and was asking to see the social services director. creative services writer was informed and will be visiting prior to discharge. OBJECTIVE: Mood, anxious. Affect, constricted. Thought process, confused. The patient denied any suicidal ideation, plan or intention or any wish to . The patient continues to have difficulty responding and being able to follow through with direction; however, this is improved somewhat. ASSESSMENT: Schizoaffective disorder, depressed, improving. PLAN: The patient will be discharging today and will be followed up on an outpatient basis by both Psychiatry and Psychology. Coping strategies and skills for phase of life issues were reviewed. Anxiety reduction and stress management also reviewed to increase frustration tolerance. Provided positive reinforcement for compliance with all aspects of care and treatment. The patient's family has been informed. DISCHARGE RECOMMENDATIONS: Include medication management as well as behavioral therapy. Thank you Dr. Land for this consult and the opportunity to participate with you in your patient's care. JOB# [id number] EMELY
== END 2017-04-29 15:50 | disposition home or self-care (01) | DRG 885 ==
LOC: ER 22:36 → GERO 04-13 06:30
PROVIDERS: ADMIT Psychiatry & Neurology Psychiatry; ATTEND Psychiatry & Neurology Psychiatry
DX: F25.1 Schizoaffective disorder, depressive type (principal); F03.90 Unspecified dementia, unspecified severity, without behavioral disturbance, psychotic disturbance, mood disturbance, and anxiety; R45.851 Suicidal ideations; F41.9 Anxiety disorder, unspecified; I10 Essential (primary) hypertension; Z88.0 Allergy status to penicillin; Z91.013 Allergy to seafood
CPT/HCPCS: 36415-UA; 80053-TC; 81001-TC; 84443-TC; 85025-TC; 93005; 94760; J1631